=== PATIENT | male | born 1940 | race African-American/Black ===

== ENCOUNTER 2016-06-26 11:38 | Observation (INO) ==
[2016-06-26] MEDS ORDERED: NITROGLYCERIN 2% OINT 1 INCH/GM PACK TOP STA (12:12)
[2016-06-26] MEDS ORDERED: ALUM/MAG/SIMETH/LIDO VISC 1:1 30 ML BOTTLE PO STA (12:12)
[2016-06-26] MEDS ORDERED: NITROGLYCERIN SL 0.4 MG TABLET SL PRN ×3 (12:12→15:00)
[2016-06-26] MEDS ORDERED: ENOXAPARIN 100 MG/ML SYRINGE SUBCUT STA (12:12)
[2016-06-26] MEDS ORDERED: ASPIRIN 325 MG TABLET PO STA (12:12)
--- NOTE | 2016-06-26 12:15 | EKG Report ---
Stationary ECG Study 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
[2016-06-26] MEDS ORDERED: ALUM/MAG/SIMETH/LIDO VISC 1:1 30 ML BOTTLE PO ONE (12:22)
[2016-06-26] MEDS ORDERED: ASPIRIN 325 MG TABLET ONE (12:22)
[2016-06-26] MEDS ORDERED: NITROGLYCERIN 2% OINT 1 INCH/GM PACK TOP ONE (12:23)
[2016-06-26] MEDS ORDERED: ENOXAPARIN 40 MG/0.4 ML SYRINGE ONE (12:23)
[2016-06-26] MEDS ORDERED: ENOXAPARIN 100 MG/ML SYRINGE SUBCUT ONE (12:23)
--- NOTE | 2016-06-26 12:25 | Emergency Department Note ---
Elicia Rader Hilary, am scribing for, and in the presence of, Dami Herman MD 12: 19. Batsheva Rader James D, MD, personally performed the services described in this documentation, ascribed by Yoselin Rubi in my presence, and it is both accurate and complete [id number] . Arrival - Arrival Chief Complaint: Chest Pain Stated Complaint: chest pain ED Nursing Triage Note: Pt c/o chest pain with SOB since yesterday. Mode of Arrival: Ambulatory Limitations: No Limitations Source: Patient, RN Notes Reviewed Time Seen by Provider: 06/26/16 12:12 - History of Present Illness HPI Narrative: Pt is a 76 y/o black male presenting to the ED with c/o of dull chest pain and SOB. Pt confirms coughing, SOB, midsternal chest pain but denies diaphoresis, nausea or vomiting. He states that it feels like he has a "blockage" but doesn' t have a hard time swallowing or eating. Pt has a PMHx of HTN, DM, CHF and a stent but denies this feeling the same as before his stent was put in. No other complaints or problems stated. Onset (ago): day(s) Allergies/Adverse Reactions: Allergies Allergy/AdvReac Type Severity Reaction Status Date / Time No Known Allergies Allergy Verified 05/09/15 20:54 Home Medications: Home Medications Medication Instructions Recorded Confirmed Type Nitroglycerin Sl Tab [Nitrostat] 0.4 mg SL Q5M PRN #100 tablet 06/03/14 Rx Pantoprazole Tab [Protonix Tab] 40 mg PO DAILY #30 tablet 06/03/14 06/26/16 Rx [place]-3 Fatty Acids [Fish Oil] 1,000 mg PO BID 11/21/14 06/26/16 History Lisinopril [Lisinopril] 40 mg PO BID 12/02/14 06/26/16 History Cholecalciferol [Vitamin D3] 1,000 unit PO DAILY 03/20/16 06/26/16 History Diclofenac Sodium Tab [Voltaren] 75 mg PO BID 03/20/16 06/26/16 History Furosemide Tab [Lasix Tab] 80 mg PO BID 03/20/16 06/26/16 History Magnesium Oxide 420 mg PO BID 03/20/16 06/26/16 History Saxagliptin HCl [Onglyza] 5 mg PO DAILY 03/20/16 06/26/16 History Theophylline ER Tab 300 mg PO Q12H 03/20/16 06/26/16 History Albuterol Sulfate [Proair HFA] 2 puff INH Q6H PRN 06/26/16 06/26/16 History Atorvastatin Calcium 20 mg PO BEDTIME 06/26/16 06/26/16 History Carvedilol [Coreg] 25 mg PO BID 06/26/16 06/26/16 History Cyanocobalamin (Vitamin B-12) 1,000 mcg PO QAM 06/26/16 06/26/16 History [Vitamin B-12] Insulin NPH Hum/Reg Insulin Hm 40 unit SUBCUT QPM 06/26/16 06/26/16 History [NovoLIN 70/30] Insulin NPH Hum/Reg Insulin Hm 55 unit SUBCUT QAM 06/26/16 06/26/16 History [NovoLIN 70/30] Losartan Potassium 50 mg PO BID 06/26/16 06/26/16 History Multivitamin [Multivitamins] 1 each PO BEDTIME 06/26/16 06/26/16 History Nortriptyline HCl 10 mg PO BEDTIME 06/26/16 06/26/16 History amLODIPine [Norvasc] 5 mg PO DAILY 06/26/16 06/26/16 History cloNIDine TAB [Catapres Tab] 0.1 mg PO DAILY PRN 06/26/16 06/26/16 History Review of System - Review of System 12 point system: reviewed and no additional remarkable complaints except as stated - Review of System Constitutional: Absent: diaphoresis, fever Respiratory: Present: cough Cardiovascular: Present: chest pain Gastrointestinal: Absent: abdominal pain, nausea, vomiting Medical,Surgical,& Family Hx - Medical History Cardio: History of: CHF, CAD (3.0 x 12 mm Taxus Liberte drug-eluting stent to the proximal LAD on 11/04), Hypertension, [place], Valvular Heart Disease Neurology: History of: Peripheral Neuropathy Endocrine: History of: Diabetes Mellitus (IDDM), Diabetes Mellitus (NIDDM), Dyslipidemia Respiratory: History of: COPD Gastrointestinal: History of: GERD - Surgical History Cardiac Surgeries: Sugical HX of: Cardiac Catheterization (STENT X 1) Reproductive Surgeries: Surgical HX of;: Genitourinary Surgery (Penis Pump) - Family History Family History: Reports;: Family Diabetes (MOTHER), Family Heart Disease (MOTHER ), Family Hypertension (MOTHER), Family Stroke (MOTHER) Denies;: Family Cancer - Social History Smoking Status: Former smoker Exam Physical Examination: GENERAL: This is a well-nourished, well-developed black male in no apparent distress. VITAL SIGNS: Temperature: 97.8F Pulse: 82H Respiratory: 20 Blood Pressure: 146/76 O2SAT: 96 HEENT: Head is normocephalic and atraumatic. Pupils are equally round and reactive to light. Extraocular movement are intact. Oropharynx is benign with moist mucous membranes. NECK: Neck is soft and supple without tenderness. There are no masses. There is no lymphadenopathy. LUNGS: Lungs are clear to auscultation bilaterally. Chest rises symmetrically. There is no chest wall tenderness. CV: Heart is regular rate and rhythm without murmurs, rubs, or gallops. ABDOMEN:Abdomen is soft, non-tender to palpation. There are no abnormal masses palpated. There is no organomegaly. Bowel sounds are present and active. SKIN: Skin is warm and dry. No rash. EXTREMITIES: Patient has full range of motion without tenderness. There is 1-2+ pitting edema. NEUROLOGIC: Awake, alert, and oriented x4. Cranial nerves II through XII are grossly intact. There are no motorsensory deficits. PSYCHIATRIC: Normal affect. Normal mood. Vital Signs: Vital Signs Temperature 97.8 F 06/26/16 11:55 Pulse Rate 78 06/26/16 12:30 Respiratory Rate 18 06/26/16 12:30 Blood Pressure 118/64 06/26/16 12:30 O2 Sat by Pulse Oximetry 100 06/26/16 12:30 Course - Reevaluation(s) Reevaluation #1: Patient denies any chest pain at present. He states that he is pain-free. Time: 13:15 - Consultations Consultation #1: Discussed with Dr. Lizarraga. Patient will be admitted to his service. Initial orders written for him. He will assume patient's care upon arrival to the [facility]. Time: 13:15 Consultation #2: Discussed with Dr. Arce. He will see the patient in the emergency department. Consider left heart cath now. Time: 13:35 Results - Labs CBC & BMP: 06/26/16 12:17 06/26/16 12:17 Lab Results: I have reviewed the patients labs Labs: Laboratory Tests 06/26/16 12:17 WBC 9.6 RBC 4.27 Hgb 13.9 L Hct 42.9 Laboratory Tests 06/26/16 12:17 Troponin I 1.740 H Laboratory Tests 06/26/16 06/26/16 12:17 12:17 Sodium 142 Potassium 3.9 Chloride 107 Carbon Dioxide 30 Creatinine 1.40 H Glucose 115 H Calcium 8.4 L Troponin I 1.740 H Albumin 3.3 L Globulin 4.3 H Albumin/Globulin Ratio 0.7 L - EKG EKG results: interpreted by ERMD - Impressions EKG: Normal sinus rhythm with a rate 81, nonspecific intraventricular conduction delay. ST segment depression and T-wave inversion laterally and inferiorly - Diagnostic Findings Procedure: Chest x-ray: image reviewed by me, report reviewed by me (No acute cardiopulmonary process is identified) Disposition Clinical Impression: Chest pain, Coronary artery disease, Essential hypertension, Diabetes mellitus , Non-STEMI (non-ST elevated myocardial infarction) Case discussed with: patient Disposition: Still a Patient Condition: Stable Time of Disposition: 13:15
[2016-06-26 12:26] LABS: Basophils % 0.3 % (0.0-0.8); Eosinophils # 0.1 10*3/uL (0.0-0.87); Eosinophils % 1.5 % (0.00-10.9); Hematocrit 42.9 VOL% (42.0-52.0); Hemoglobin 13.9 GM/DL (14.0-18.0); Immature Granulocytes % 0.4 %; Immature Granulocytes Absolute 0.04 #; Lymphocytes # 3.1 10*3/uL (1.4-4.0); Lymphocytes % 31.9 % (21.2-54.2); Mean Corpuscular HGB Conc 32.4 GM/DL (32-36); Mean Corpuscular Hemoglobin 33 PG (27-34); Mean Corpuscular Volume 100.5 FL (87-102); Mean Platelet Volume 10.3 FL (9.6-12.0); Monocytes # 0.8 10*3/uL (0.11-0.8); Neutrophils # 5.5 10*3/uL (1.4-7.4); Neutrophils % 57.9 % (38.7-73.9); Platelet Count 187 T/CUMM (130-400); Red Blood Count 4.27 MC/CUMM (3.8-5.5); Red Cell Distribution Width 12.6 % (9.3-17.3); White Blood Count 9.6 T/CUMM (4-12)
--- NOTE | 2016-06-26 12:43 | XRay Report ---
Exam: Chest 2 views Date: June 26, 2016 at 12:27 PM Comparison: Chest one view portable December 02, 2014 Reason: Chest pain Findings: The cardiac silhouette is normal in size. No focal consolidation, pneumothorax or pleural effusion is identified. No acute osseous process is seen. Impression: No acute cardiopulmonary process is identified. PROCEDURE INTERPRETED AT [facility] DEPARTMENT OF RADIOLOGY Final Report Signed by: Dr. Robina Chandra
[2016-06-26 12:56] LABS: Albumin 3.3 G/DL (3.4-5.0); Bilirubin,Total 0.8 MG/DL (0.2-1.0); Calcium 8.4 MG/DL (8.5-10.1); Magnesium 2.2 MG/DL (1.8-2.4); Osmolality,Calculated 284.1 MOS/KG (273-304); Potassium 3.9 MMOL/L (3.5-5.1); Total Protein 7.6 G/DL (6.4-8.3)
[2016-06-26] MEDS ORDERED: HEPARIN/NACL 0.9% 2 UNITS/ML 1,000 ML IV ONE (13:56)
--- NOTE | 2016-06-26 13:57 | Cardiology History & Physical ---
Assessment and Plan - Time spent with patient Time spent with patient: Greater than 30 minutes (1) Coronary artery disease Status: Chronic Current Visit: Yes Qualifiers: Coronary Disease-Associated Artery/Lesion type: [place] artery [place] vs. transplanted heart: [place] heart Associated angina: with unstable angina Qualified Code(s): I25.110 - Atherosclerotic heart disease of [place] coronary artery with unstable angina pectoris (2) Diabetes mellitus Status: Chronic Current Visit: Yes Qualifiers: Diabetes mellitus type: type 2 (3) Essential hypertension Status: Chronic Current Visit: Yes (4) Dyslipidemia Status: Chronic Current Visit: No (5) Hypertension Status: Chronic Current Visit: No Qualifiers: Hypertension type: essential hypertension Qualified Code(s): I10 - Essential (primary) hypertension (6) Obesity Status: Chronic Current Visit: No (7) Sleep apnea Status: Chronic Current Visit: No (8) ACS (acute coronary syndrome) Status: Acute Current Visit: No History of Present Illness Chief complaint: Feels like a blockage in here (points to epigastric area) History of present illness: Mr. Lau is a 76 year old male with history of percutaneous coronary intervention in 2008 and repeat heart cath by Dr. Israel 2012 showed no evidence of significant high-grade epicardial stenosis who presents with discomfort in the epigastrium area that started yesterday. He came for further evaluation he has a nondiagnostic EKG but has elevated troponin. I was asked to see. He is currently pain-free. He has dyspnea on exertion but is very sedentary states he can only walk really from the street to the house is about as far as he ever needs to walk. He has a personal history of coronary artery disease and every identifiable risk factor. Has mild renal insufficiency that is chronic. Home Medications Medication Instructions Recorded Confirmed Type Nitroglycerin Sl Tab [Nitrostat] 0.4 mg SL Q5M PRN #100 tablet 06/03/14 Rx Pantoprazole Tab [Protonix Tab] 40 mg PO DAILY #30 tablet 06/03/14 06/26/16 Rx [place]-3 Fatty Acids [Fish Oil] 1,000 mg PO BID 11/21/14 06/26/16 History Lisinopril [Lisinopril] 40 mg PO BID 12/02/14 06/26/16 History Cholecalciferol [Vitamin D3] 1,000 unit PO DAILY 03/20/16 06/26/16 History Diclofenac Sodium Tab [Voltaren] 75 mg PO BID 03/20/16 06/26/16 History Furosemide Tab [Lasix Tab] 80 mg PO BID 03/20/16 06/26/16 History Magnesium Oxide 420 mg PO BID 03/20/16 06/26/16 History Saxagliptin HCl [Onglyza] 5 mg PO DAILY 03/20/16 06/26/16 History Theophylline ER Tab 300 mg PO Q12H 03/20/16 06/26/16 History Albuterol Sulfate [Proair HFA] 2 puff INH Q6H PRN 06/26/16 06/26/16 History Atorvastatin Calcium 20 mg PO BEDTIME 06/26/16 06/26/16 History Carvedilol [Coreg] 25 mg PO BID 06/26/16 06/26/16 History Cyanocobalamin (Vitamin B-12) 1,000 mcg PO QAM 06/26/16 06/26/16 History [Vitamin B-12] Insulin NPH Hum/Reg Insulin Hm 40 unit SUBCUT QPM 06/26/16 06/26/16 History [NovoLIN 70/30] Insulin NPH Hum/Reg Insulin Hm 55 unit SUBCUT QAM 06/26/16 06/26/16 History [NovoLIN 70/30] Losartan Potassium 50 mg PO BID 06/26/16 06/26/16 History Multivitamin [Multivitamins] 1 each PO BEDTIME 06/26/16 06/26/16 History Nortriptyline HCl 10 mg PO BEDTIME 06/26/16 06/26/16 History amLODIPine [Norvasc] 5 mg PO DAILY 06/26/16 06/26/16 History cloNIDine TAB [Catapres Tab] 0.1 mg PO DAILY PRN 06/26/16 06/26/16 History Allergies Allergy/AdvReac Type Severity Reaction Status Date / Time No Known Allergies Allergy Verified 05/09/15 20:54 - Constitutional Constitutional: Present: weakness, weight loss. Absent: anorexia, chills, frequent falls, headache(s), lethargy - EENT Eyes: Absent: blurry vision, diplopia Ears: Present: decreased hearing. Absent: ear discharge Nose, mouth and throat: Absent: dysphagia, lip swelling - Cardiovascular Cardiovascular: Present: chest pain at rest, dyspnea, dyspnea on exertion, edema. Absent: lightheadedness, orthopnea, palpitations - Respiratory Respiratory: Present: dyspnea, dyspnea on exertion - Gastrointestinal Gastrointestinal: Present: abdominal pain. Absent: constipation - Genitourinary Genitourinary: Present: difficulty urinating. Absent: hematuria - Musculoskeletal Musculoskeletal: Present: arthralgias. Absent: joint swelling - Neurological Neurological: Absent: abnormal speech, behavioral changes, confusion, convulsions, disequilibrium, dizziness - Psychiatric Psychiatric: Absent: anxiety, depression - Endocrine Endocrine: Absent: cold intolerance, heat intolerance - Hematologic/Lymphatic Hematologic/Lymphatic: Absent: easy bleeding, easy bruising Medical,Surgical,& Family Hx - Medical History Cardio: History of: CHF, CAD (3.0 x 12 mm Taxus Liberte drug-eluting stent to the proximal LAD on 11/04), Hypertension, [place], Valvular Heart Disease Neurology: History of: Peripheral Neuropathy Endocrine: History of: Diabetes Mellitus (NIDDM), Dyslipidemia Respiratory: History of: COPD Gastrointestinal: History of: GERD - Surgical History Cardiac Surgeries: Sugical HX of: Cardiac Catheterization (STENT X 1 2008 and repeat LHC 2012 with no PCI) Reproductive Surgeries: Surgical HX of;: Genitourinary Surgery (Penis Pump) - Family History Family History: Reports;: Family Diabetes (MOTHER), Family Heart Disease (MOTHER ), Family Hypertension (MOTHER), Family Stroke (MOTHER) Denies;: Family Cancer - Social History Smoking Status: Former smoker Frequency of Alcohol Use: None Type of Drug Use: None Marital Status: Lives With:: Spouse Functional capacity: independent ambulation Cardiology Physical Exam - Constitutional Vitals: Vital Signs Temp Pulse Resp BP Pulse Ox 97.8 F 76 19 123/75 99 06/26/16 11:55 06/26/16 13:30 06/26/16 13:30 06/26/16 13:30 06/26/16 13:30 General appearance: morbidly obese - Head Head exam: Present: other (ASA 4 airway) - Eye Eye exam: Present: EOMI Pupils: Present: REBECA, normal accommodation - ENT ENT exam: Present: normal exam - Neck Neck exam: Present: normal inspection - Respiratory Respiratory exam: Present: clear to auscultation bilaterally - Cardiovascular Cardiovascular exam: Present: regular rate and rhythm (tones obscured in the ambient noise of the ED) - GI/Abdominal GI/Abdominal exam: Present: normal bowel sounds, soft. Absent: mass - Extremities Exam Extremities exam: Present: normal inspection - Back Exam Back exam: Present: normal inspection - Neurological Exam Neurological exam: Present: alert, oriented X3 - Psychiatric Psychiatric exam: Present: normal affect - Skin Skin exam: Present: normal color Result/EKG - Labs CBC & BMP: 06/26/16 12:17 06/26/16 12:17 - EKG EKG results: interpreted by me (NSR with old anteroseptal PA and lateral TWI)
[2016-06-26 14:03] LABS: Apearance,Urine CLEAR (Clear); Bacteria,Urine Occasional /HPF (Few); Bilirubin,Urine Negative (Negative); Blood, Urine Negative (Negative); Glucose,Urine (UA) Negative (Negative); Hyaline Casts,Urine 1 /LPF (0-3); Ketones,Urine Negative (Negative); Mucus,Urine Occasional /LPF (Occasional); Nitrite,Urine Negative (Negative); Protein,Urine Negative; Squamous Epithelial Cell,Urine Occasional /HPF (0-10); Urine Color Yellow (Yellow); Urine Specific Gravity 1.013 (1.001-1.035); Urine Urobilinogen < 2.0 EU/DL (0.2-1.0); WBC,Urine 2 /HPF (0-6)
[2016-06-26] MEDS ORDERED: MIDAZOLAM 2 MG/2 ML VIAL ONE (14:03)
[2016-06-26] MEDS ORDERED: fentaNYL 100 MCG/2 ML VIAL ONE (14:03)
--- NOTE | 2016-06-26 14:05 | History and Physical Update ---
Sedation H&P Update - History and Physical H&P was reviewed, the patient examined and there: are no changes in the patients condition since last H&P was completed. - Dictation Physical: refer to H&P completed by admitting physician - Physical Exam Mental Status: alert and oriented Heart: regular rate and rhythm Lung: clear to auscultation Abdomen: within normal limits Vitals: within normal limits - Sedation Plan for Sedation: moderate Patient Consent: Procedure disscussed with patient and patinet has consented., Risks and benefits were discussed with patient,including infection,, bleeding, injury to surrounding structures, seizure, temporary nerve, Patient understands and accepts potential risks/benefits and agrees to, proceed. ASA Class: III Airway Assessment: Class IV: Only hard palate visible
[2016-06-26 14:07] LABS: Partial Thromboplastin Time 36.2 SECS (0-40)
[2016-06-26 14:13] LABS: Barbiturates Screen,Urine Negative (Negative); Benzodiazepines Screen,Urine Negative (Negative); Cannabinoid Screen,Urine Negative (Negative); Opiate Screen,Urine Negative (Negative); Phencyclidine Screen,Urine Negative (Negative)
[2016-06-26] MEDS ORDERED: VERAPAMIL 5 MG/2 ML VIAL ONE (14:19)
[2016-06-26] MEDS ORDERED: NITROGLYCERIN DRIP 50 MG/250 ML BOTTLE IV ONE (14:19)
[2016-06-26] MEDS ORDERED: CLOPIDOGREL 300 MG TABLET PO ONE (14:45)
[2016-06-26] MEDS ORDERED: ACETAMINOPHEN 325 MG TABLET PO PRN ×2 (14:45→15:00)
[2016-06-26] MEDS ORDERED: hydrALAZINE 20 MG/1 ML VIAL IV PRN (14:49)
--- NOTE | 2016-06-26 14:56 | Cardiac Catheterization ---
Date of Procedure:: 06/26/16 Pre-op Diagnosis: Acute coronary syndrome, troponin positive Post-op diagnosis: other (High-grade mid nondominant very small RCA (supplies only RV branch)) Procedure: Procedures: 1. Selective left coronary angiography After signed an informed consent was obtained, the patient was prepped and draped in standard fashion for right radial access. Time out was recorded. 0.5 mL of 1% lidocaine were infiltrated in the skin and subcutaneous tissue overlying the right radial artery and Seldinger technique was utilized with a Angiocath to obtain access to the right radial artery. A CinnamonumCortera glide wire was then advanced into the midforearm under fluoroscopic guidance. The Angiocath was removed and a 6 [place] Terumo glide sheath was placed over the Glidewire. The sheath was aspirated and flushed and then 5 mg of verapamil and 200 g of nitroglycerin were given through the sheath. At this time an 035 J-wire was used to guide a [place] 6 [place] catheter was then used to engage the left main coronary artery and multiple orthogonal views of the left system were obtained. The catheter then was torqued into the right coronary artery and orthogonal views of the right system were obtained. The catheter was then exchanged over the wire. The sheath was aspirated and flushed. The slitter cut off operator reviewed the films. And a TR band was placed over the glide sheath and used for hemostasis. Total contrast exposure 140 cc of omnipaque Total x-ray exposure: 4.4 min fluoroscopy time and 690 mGy air Kerma Due to the patient's body habitus and suboptimal access from the radial artery position there before or suboptimal imaging. Patient's BMI is only 40 however it is significantly amount of fat and tissue around the thorax. Findings: 1. Hemodynamics Ao:125/61 2. Left main: This vessel is angiographically normal 3: Left anterior descending artery: Left anterior descending arteries has mild plaque throughout his very tortuous vessel. 4: Left circumflex artery: Left circumflex artery is a dominant vessel and has mild luminal irregularities. There is no high-grade epicardial stenosis. There is diffuse small vessel disease in the secondary and tertiary level vessels 5: Right coronary artery: Right coronary artery is approximately 2.5 mm vessel it is nondominant supplies only segments of the right ventricle. There is approximately 80% hazy stenosis in the mid segment of this vessel there is NIGEL II flow to the branches of the right ventricle. The previously deployed stent is widely patent and overall the vessels superior not significantly different in the epicardial standpoint and his last heart cath in 2012. There is diffuse small vessel disease Assessment: 1. Troponin positive acute coronary syndrome secondary to high-grade mid nondominant RCA coronary artery (no identifiable supply to the left ventricle) Plan: 1. Therapeutic lifestyle changes. 2. Medical management cardiac rehab Implants: None Anesthesia: minimal conscious sedation Surgeon / Physician: Nidhi Arce Jewelry Jobber: none Estimated blood loss: none Specimens: none sent Condition: stable Disposition: floor - Medications / Follow-up
[2016-06-26] MEDS ORDERED: PANTOPRAZOLE 40 MG TABLET PO SCH (15:00)
[2016-06-26] MEDS ORDERED: ZALEPLON 5 MG CAPSULE PO PRN (15:00)
[2016-06-26] MEDS ORDERED: GLUCAGON 1 MG VIAL IM PRN (15:00)
[2016-06-26] MEDS ORDERED: SODIUM CHLORIDE 0.45% 1,000 ML IV SCH (15:00)
[2016-06-26] MEDS ORDERED: DEXTROSE 50% 25 GM/50 ML VIAL IV PRN (15:00)
[2016-06-26] MEDS ORDERED: SODIUM CHLORIDE 0.9% 1,000 ML IV SCH (15:00)
[2016-06-26] MEDS ORDERED: cloNIDine 0.1 MG TABLET PO PRN (15:00)
[2016-06-26] MEDS ORDERED: ONDANSETRON 4 MG/2 ML VIAL IV PRN (15:00)
[2016-06-26] MEDS ORDERED: MAGNESIUM SULF RIDER 2 GM in PREMIX 1 EACH IV PRN (15:00)
[2016-06-26] MEDS ORDERED: MAGNESIUM SULF RIDER 4 GM in PREMIX 1 EACH IV PRN (15:00)
[2016-06-26] MEDS ORDERED: MORPHINE 2 MG/1 ML SYRINGE IV PRN (15:00)
[2016-06-26] MEDS: CYANOCOBALAMIN 500 MCG TABLET PO SCH (16:12)
[2016-06-26] MEDS: sitaGLIPtin 100 MG TABLET PO SCH (16:12)
[2016-06-26] MEDS: INSULIN REGULAR 100 UNIT/ML SUBCUT SCH ×2 (16:53→22:04)
[2016-06-26] MEDS: THEOPHYLLINE ER 300 MG TABLET PO SCH (16:53)
[2016-06-26] MEDS: ALBUTEROL 2.5 MG/3 ML NEB RESP TX SCH ×2 (17:56→19:32)
[2016-06-26] MEDS: INSULIN NPH/REGULAR 70/30 100 UNIT/ML SUBCUT SCH (18:39)
[2016-06-26] MEDS ORDERED: ATORVASTATIN 20 MG TABLET PO SCH (21:00)
[2016-06-26] MEDS: OMEGA 3 ACID ETHYL ESTERS 1 GM CAPSULE PO SCH (22:02)
[2016-06-26] MEDS: NORTRIPTYLINE 10 MG CAPSULE PO SCH (22:03)
[2016-06-26] MEDS: CARVEDILOL 25 MG TABLET PO SCH (22:03)
[2016-06-26] MEDS: MAGNESIUM OXIDE 400 MG TABLET PO SCH (22:03)
[2016-06-26] MEDS: LOSARTAN 50 MG TABLET PO SCH (22:04)
[2016-06-26] MEDS: FUROSEMIDE 80 MG TABLET PO SCH (22:04)
[2016-06-26] MEDS: MULTIVITAMIN (CENTRUM) TABLET PO SCH (22:05)
[2016-06-27] MEDS: ALBUTEROL 2.5 MG/3 ML NEB RESP TX SCH ×4 (02:38→21:32)
[2016-06-27] MEDS: THEOPHYLLINE ER 300 MG TABLET PO SCH ×2 (05:49→14:41)
[2016-06-27 06:24] LABS: Basophils % 0.3 % (0.0-0.8); Eosinophils # 0.2 10*3/uL (0.0-0.87); Eosinophils % 1.6 % (0.00-10.9); Hematocrit 39.2 VOL% (42.0-52.0); Hemoglobin 12.9 GM/DL (14.0-18.0); Immature Granulocytes % 0.4 %; Immature Granulocytes Absolute 0.04 #; Lymphocytes # 3.2 10*3/uL (1.4-4.0); Lymphocytes % 34.3 % (21.2-54.2); Mean Corpuscular HGB Conc 32.9 GM/DL (32-36); Mean Corpuscular Hemoglobin 33 PG (27-34); Monocytes # 0.7 10*3/uL (0.11-0.8); Monocytes % 7.9 % (1.7-12.7); Neutrophils # 5.1 10*3/uL (1.4-7.4); Neutrophils % 55.5 % (38.7-73.9); Platelet Count 167 T/CUMM (130-400); Red Blood Count 3.96 MC/CUMM (3.8-5.5); Red Cell Distribution Width 12.7 % (9.3-17.3); White Blood Count 9.2 T/CUMM (4-12)
[2016-06-27 06:54] LABS: Calcium 7.9 MG/DL (8.5-10.1); Osmolality,Calculated 283.1 MOS/KG (273-304); Potassium 3.7 MMOL/L (3.5-5.1)
[2016-06-27] MEDS: INSULIN REGULAR 100 UNIT/ML SUBCUT SCH ×4 (08:41→21:50)
[2016-06-27] MEDS: CYANOCOBALAMIN 500 MCG TABLET PO SCH (09:14)
[2016-06-27] MEDS: amLODIPine 5 MG TABLET PO SCH (09:14)
[2016-06-27] MEDS: CLOPIDOGREL 75 MG TABLET PO SCH (09:14)
[2016-06-27] MEDS: LOSARTAN 50 MG TABLET PO SCH ×2 (09:14→21:48)
[2016-06-27] MEDS: CHOLECALCIFEROL 1,000 UNIT TABLET PO SCH (09:14)
[2016-06-27] MEDS: sitaGLIPtin 100 MG TABLET PO SCH (09:14)
[2016-06-27] MEDS: FUROSEMIDE 80 MG TABLET PO SCH ×2 (09:14→21:49)
[2016-06-27] MEDS: OMEGA 3 ACID ETHYL ESTERS 1 GM CAPSULE PO SCH ×2 (09:14→21:49)
[2016-06-27] MEDS: PANTOPRAZOLE 40 MG TABLET PO SCH (09:14)
[2016-06-27] MEDS: CARVEDILOL 25 MG TABLET PO SCH ×2 (09:15→21:50)
[2016-06-27] MEDS: MAGNESIUM OXIDE 400 MG TABLET PO SCH ×2 (09:15→21:49)
[2016-06-27] MEDS: ISOSORBIDE MONONITRATE 30 MG TABLET PO SCH (09:15)
--- NOTE | 2016-06-27 10:55 | Cardiology Progress Note ---
Assessment and Plan (1) Coronary artery disease Status: Chronic Current Visit: Yes Qualifiers: Coronary Disease-Associated Artery/Lesion type: [place] artery [place] vs. transplanted heart: [place] heart Associated angina: with unstable angina Qualified Code(s): I25.110 - Atherosclerotic heart disease of [place] coronary artery with unstable angina pectoris (2) Diabetes mellitus Status: Chronic Current Visit: Yes Qualifiers: Diabetes mellitus type: type 2 (3) Essential hypertension Status: Chronic Current Visit: Yes (4) Dyslipidemia Status: Chronic Current Visit: No (5) Hypertension Status: Chronic Current Visit: No Qualifiers: Hypertension type: essential hypertension Qualified Code(s): I10 - Essential (primary) hypertension (6) Obesity Status: Chronic Current Visit: No (7) Sleep apnea Status: Chronic Current Visit: No (8) ACS (acute coronary syndrome) Status: Acute Assessment and plan: As above in the HPI. This is troponin positive Current Visit: No Cardiology - PN: Subj Interval history: Mr. Lau states that he has a dull ache in his chest that has without much change. He does not notice that it is worse when he up and walks. He states he actually notices it more when he is lying back. He got up only to go to the restroom. I talked to him about his anatomy in this nondominant RCA that has a high-grade stenosis and I elected not to perform PCI yesterday because the nondominant status and I felt that it had little contribution his overall morbidity and mortality. If he continues to have discomfort we will consider PCI. I am reluctant to do this and do not know therapy much benefit. He also has diffuse small vessel disease. All of which could be contributing. His troponin peaked at 2.6 and is trending back down. I suppose if he continues to have discomfort in his chest I will proceed with PCI of the nondominant RCA. Exam (Progress Note) - Constitutional Vitals: Period Temp Pulse Resp BP Sys/Fair Pulse Ox Last 24 Hr 96.4 F-99 F 72-104 14-20 118-185/52-90 91-100 General appearance: morbidly obese - Head Head exam: Present: normal inspection - Eye Eye exam: Present: EOMI - Respiratory Respiratory exam: Present: clear to auscultation bilaterally - Cardiovascular Cardiovascular exam: Present: regular rate and rhythm - GI/Abdominal GI/Abdominal exam: Present: normal bowel sounds - Extremities Exam Extremities exam: Present: normal inspection - Neurological Exam Neurological exam: Present: alert, oriented X3 - Psychiatric Psychiatric exam: Present: normal affect, normal mood - Skin Skin exam: Present: normal color, warm, dry Result/EKG - Labs CBC & BMP: 06/27/16 05:03 06/27/16 05:03 Labs: Laboratory Results - last 24 hr 06/26/16 06/26/16 06/26/16 13:46 13:51 13:51 WBC RBC Hgb Hct MCV MCH MCHC RDW Plt Count MPV Neut % (Auto) Lymph % (Auto) [place] % (Auto) Eos % (Auto) Baso % (Auto) Neut # (Auto) Lymph # (Auto) [place] # (Auto) Eos # (Auto) Baso # (Auto) Immature Gran % Nucleated RBC % Immature Gran # Nucleated RBCs # INR 1.0 PT Patient/Control Mix 11.0 Circ Anticoag PTT 36.2 D Sodium Potassium Chloride Carbon Dioxide Anion Gap BUN Creatinine GFR Calculation BUN/Creatinine Ratio Glucose POC Glucose Calculated Osmolality Calcium Troponin I Urine Color Yellow Urine Appearance Clear Urine pH 6.0 Ur Specific [place] 1.013 Urine Protein Negative Urine Glucose (UA) Negative Urine Ketones Negative Urine Blood Negative Urine Nitrate Negative Urine Bilirubin Negative Urine Urobilinogen < 2.0 H Urine Leukocytes Negative Urine WBC 2 Ur Squamous Epith Cells Occasional Urine Bacteria Occasional Hyaline Casts 1 Urine Mucus Occasional Ur Culture Indicated? Not indicated Urine Opiates Screen Negative Ur Barbiturates Screen Negative Ur Phencyclidine Scrn Negative U Amphetamine/Methamph Negative U Benzodiazepines Scrn Negative U Cocaine Metab Screen Negative U Cannabinoids Screen Negative 06/26/16 06/26/16 06/26/16 15:17 16:36 17:58 WBC RBC Hgb Hct MCV MCH MCHC RDW Plt Count MPV Neut % (Auto) Lymph % (Auto) [place] % (Auto) Eos % (Auto) Baso % (Auto) Neut # (Auto) Lymph # (Auto) [place] # (Auto) Eos # (Auto) Baso # (Auto) Immature Gran % Nucleated RBC % Immature Gran # Nucleated RBCs # INR PT Patient/Control Mix Circ Anticoag PTT Sodium Potassium Chloride Carbon Dioxide Anion Gap BUN Creatinine GFR Calculation BUN/Creatinine Ratio Glucose POC Glucose 56 L Calculated Osmolality Calcium Troponin I 1.690 H 2.100 H D Urine Color Urine Appearance Urine pH Ur Specific [place] Urine Protein Urine Glucose (UA) Urine Ketones Urine Blood Urine Nitrate Urine Bilirubin Urine Urobilinogen Urine Leukocytes Urine WBC Ur Squamous Epith Cells Urine Bacteria Hyaline Casts Urine Mucus Ur Culture Indicated? Urine Opiates Screen Ur Barbiturates Screen Ur Phencyclidine Scrn U Amphetamine/Methamph U Benzodiazepines Scrn U Cocaine Metab Screen U Cannabinoids Screen 06/26/16 06/26/16 06/27/16 20:46 21:42 05:03 WBC 9.2 RBC 3.96 Hgb 12.9 L Hct 39.2 L MCV 99.0 MCH 33 MCHC 32.9 RDW 12.7 Plt Count 167 MPV 11.0 Neut % (Auto) 55.5 Lymph % (Auto) 34.3 [place] % (Auto) 7.9 Eos % (Auto) 1.6 Baso % (Auto) 0.3 Neut # (Auto) 5.1 Lymph # (Auto) 3.2 [place] # (Auto) 0.7 Eos # (Auto) 0.2 Baso # (Auto) 0.0 Immature Gran % 0.4 Nucleated RBC % 0.0 Immature Gran # 0.04 Nucleated RBCs # 0.00 INR PT Patient/Control Mix Circ Anticoag PTT Sodium Potassium Chloride Carbon Dioxide Anion Gap BUN Creatinine GFR Calculation BUN/Creatinine Ratio Glucose POC Glucose 128 H Calculated Osmolality Calcium Troponin I 1.870 H Urine Color Urine Appearance Urine pH Ur Specific [place] Urine Protein Urine Glucose (UA) Urine Ketones Urine Blood Urine Nitrate Urine Bilirubin Urine Urobilinogen Urine Leukocytes Urine WBC Ur Squamous Epith Cells Urine Bacteria Hyaline Casts Urine Mucus Ur Culture Indicated? Urine Opiates Screen Ur Barbiturates Screen Ur Phencyclidine Scrn U Amphetamine/Methamph U Benzodiazepines Scrn U Cocaine Metab Screen U Cannabinoids Screen 06/27/16 06/27/16 05:03 07:14 WBC RBC Hgb Hct MCV MCH MCHC RDW Plt Count MPV Neut % (Auto) Lymph % (Auto) [place] % (Auto) Eos % (Auto) Baso % (Auto) Neut # (Auto) Lymph # (Auto) [place] # (Auto) Eos # (Auto) Baso # (Auto) Immature Gran % Nucleated RBC % Immature Gran # Nucleated RBCs # INR PT Patient/Control Mix Circ Anticoag PTT Sodium 142 Potassium 3.7 Chloride 106 Carbon Dioxide 28 Anion Gap 11.7 BUN 13 Creatinine 1.30 GFR Calculation 90 BUN/Creatinine Ratio 10.00 Glucose 114 H POC Glucose 132 H Calculated Osmolality 283.1 Calcium 7.9 L Troponin I Urine Color Urine Appearance Urine pH Ur Specific [place] Urine Protein Urine Glucose (UA) Urine Ketones Urine Blood Urine Nitrate Urine Bilirubin Urine Urobilinogen Urine Leukocytes Urine WBC Ur Squamous Epith Cells Urine Bacteria Hyaline Casts Urine Mucus Ur Culture Indicated? Urine Opiates Screen Ur Barbiturates Screen Ur Phencyclidine Scrn U Amphetamine/Methamph U Benzodiazepines Scrn U Cocaine Metab Screen U Cannabinoids Screen Quality Measures - VTE Contraindication to Pharmacological VTE Prophylaxis: Already on Theraputic Agent , No Prophylaxis Needed Specialty Discharge - Follow Up or Referrals
[2016-06-27] MEDS: ASPIRIN EC 81 MG TABLET PO SCH (12:46)
[2016-06-27] MEDS: traMADol 50 MG TABLET PO SCH ×2 (14:42→21:48)
[2016-06-27] MEDS: GABAPENTIN 100 MG CAPSULE PO SCH ×3 (14:42→21:48)
[2016-06-27] MEDS ORDERED: ATORVASTATIN 80 MG TABLET PO SCH (21:00)
[2016-06-27] MEDS: MULTIVITAMIN (CENTRUM) TABLET PO SCH (21:48)
[2016-06-27] MEDS: NORTRIPTYLINE 10 MG CAPSULE PO SCH (21:49)
[2016-06-27] MEDS: ACETAMINOPHEN 325 MG TABLET PO SCH (21:49)
[2016-06-27] MEDS: INSULIN NPH/REGULAR 70/30 100 UNIT/ML SUBCUT SCH (21:57)
[2016-06-28] MEDS: ALBUTEROL 2.5 MG/3 ML NEB RESP TX SCH ×2 (02:29→06:59)
[2016-06-28] MEDS: THEOPHYLLINE ER 300 MG TABLET PO SCH (03:33)
--- NOTE | 2016-06-28 08:04 | Discharge Summary ---
Rashard Rader April RN, am scribing for, and in the presence of, Nidhi Arce DO 07 :49. Hospital Course - Hospital Course Hospital Course: Mr. Lau presented to the emergency department on June 26 with discomfort in the epigastrium area that started the day before. He had a nondiagnostic EKG, but elevated troponin. He has a history of CAD with percutaneous coronary intervention in 2008 and repeat heart cath Dr. Israel in 2012 that showed no evidence of evidence of high-grade epicardial stenosis. He was taken to the [facility] with the following findings: 1. Hemodynamics Ao:125/61 2. Left main: This vessel is angiographically normal 3: Left anterior descending artery: Left anterior descending arteries has mild plaque throughout his very tortuous vessel. 4: Left circumflex artery: Left circumflex artery is a dominant vessel and has mild luminal irregularities. There is no high-grade epicardial stenosis. There is diffuse small vessel disease in the secondary and tertiary level vessels 5: Right coronary artery: Right coronary artery is approximately 2.5 mm vessel it is nondominant supplies only segments of the right ventricle. There is approximately 80% hazy stenosis in the mid segment of this vessel there is NIGEL II flow to the branches of the right ventricle. The previously deployed stent is widely patent and overall the vessels superior not significantly different in the epicardial standpoint and his last heart cath in 2012. There is diffuse small vessel disease Assessment: 1. Troponin positive acute coronary syndrome secondary to high-grade mid nondominant RCA coronary artery (no identifiable supply to the left ventricle) Yesterday he continued to have a dull ache in his chest. We discussed considering PCI to the nondominant RCA with the chest pain continued. Today he is pain-free and wishes to go home. His right wrist is without evidence of bleeding or hematoma and has a good pulse. Currently he is in sinus rhythm with heart rates in the 80s. Vital signs been stable with blood pressure 126/ 67 this morning. At this time, he appears to have reached maximum hospital benefit, and from a cardiac standpoint he is stable to be discharged home. He will follow-up with Dr. Israel in the office in 2 weeks. The lesion in the small nondominant right coronary artery was high-grade but supplies only the right ventricle. There appears to be no contribution the left ventricle it was my decision to treat this medically. The patient had some vague chest discomfort the day of the heart cath but was up and walking the day of discharge without any chest discomfort. He is aware that he has this lesion and we will proceed with PCI if medical therapy does not keep him asymptomatic. I do think the vessel is amenable to PCI if needed. - Time spent with patient Time with patient DS: Greater than 30 minutes Diagnosis - Discharge Diagnosis (1) Coronary artery disease Status: Chronic (2) Essential hypertension Status: Chronic (3) Diabetes mellitus Status: Chronic (4) Non-STEMI (non-ST elevated myocardial infarction) Status: Acute Specialty Discharge - Follow Up or Referrals Follow up with: Jorge Israel MD [Physician] - 2 Weeks (with ekg) Discharge Plan - Discharge Data Disposition: Disch To Home/Self Care Condition at Discharge: Stable Discharge Diet: heart healthy Activity: other (Post cath expectations) Hygiene: other (Post cath expectations) Weight Bearing at Discharge: other (Post cath expectations) Driving: other (Post cath expectations) Contact your physician if you experience:: fever over 101, Difficulty voiding, Redness or swelling, Nausea/Vomiting, Shortness of breath, Bleeding, pain uncontrolled by pain medications - Discharge Medications New Atorvastatin [Lipitor] 80 mg PO BEDTIME #30 tablet Clopidogrel [Plavix] 75 mg PO DAILY #30 tablet Gabapentin Cap/Tab [Neurontin Cap/Tab] 100 mg PO TID capsule Aspirin EC Tab 81 mg PO DAILY tablet Isosorbide Mononitrate [Imdur] 30 mg PO DAILY #30 tablet Continue Nitroglycerin Sl Tab [Nitrostat] 0.4 mg SL Q5M PRN #100 tablet PRN Reason: Chest Pain Pantoprazole Tab [Protonix Tab] 40 mg PO DAILY #30 tablet [place]-3 Fatty Acids [Fish Oil] 1,000 mg PO BID Diclofenac Sodium Tab [Voltaren] 75 mg PO BID Furosemide Tab [Lasix Tab] 80 mg PO BID Saxagliptin HCl [Onglyza] 5 mg PO DAILY Magnesium Oxide 420 mg PO BID amLODIPine [Norvasc] 5 mg PO DAILY Nortriptyline HCl 10 mg PO BEDTIME cloNIDine TAB [Catapres Tab] 0.1 mg PO DAILY PRN PRN Reason: Hypertension Carvedilol [Coreg] 25 mg PO BID Insulin NPH Hum/Reg Insulin Hm [NovoLIN 70/30] 55 unit SUBCUT QAM Insulin NPH Hum/Reg Insulin Hm [NovoLIN 70/30] 40 unit SUBCUT QPM Ketoconazole [Ketoconazole 2% Cream] 1 applic TOP BID PRN PRN Reason: Dry Skin Ketoconazole [Ketoconazole 2% Shampoo] 1 applic .ROUTE DIRECTED Theophylline ER Tab 300 mg PO Q12H Cholecalciferol [Vitamin D3] 1,000 unit PO DAILY Losartan Potassium 50 mg PO BID Cyanocobalamin (Vitamin B-12) [Vitamin B-12] 1,000 mcg PO QAM Multivitamin [Multivitamins] 1 each PO BEDTIME Albuterol Sulfate [Proair HFA] 2 puff INH Q6H PRN PRN Reason: Shortness Of Breath/Wheezing Discontinued Lisinopril [Lisinopril] 40 mg PO BID Atorvastatin Calcium 20 mg PO BEDTIME - Follow Up or Referral Follow Up: Jorge Israel MD [Physician] - 2 Weeks (with ekg) - Forms/Instructions Instructions: Coronary Artery Disease (GEN), Left Heart Catheterization (DC), Heart Healthy Diet (GEN) Exam - Constitutional Vitals: Period Temp Pulse Resp BP Sys/Fair Pulse Ox Last 24 Hr 97.1 F-98.6 F 16-92 16-20 126-178/67-90 91-99 General appearance: no acute distress, morbidly obese - Head Head exam: Absent: abrasion, hematoma - Eye Eye exam: Absent: periorbital swelling, laceration to eyelids - Neck Neck exam: Absent: tenderness - Respiratory Respiratory exam: Present: clear to auscultation bilaterally. Absent: accessory muscle use, chest wall tenderness - Cardiovascular Cardiovascular exam: Present: regular rate and rhythm - GI/Abdominal GI/Abdominal exam: Present: normal bowel sounds, soft. Absent: distended, tenderness - Extremities Exam Extremities exam: Absent: edema - Neurological Exam Neurological exam: Present: alert, oriented X3 - Psychiatric Psychiatric exam: Present: normal affect, normal mood - Skin Skin exam: Present: warm, dry Discharge Results Labs on day of discharge: Labs from last 24 hours 06/27/16 06/27/16 06/27/16 20:16 16:21 11:58 POC Glucose 117 H 95 143 H 06/27/16 07:14 POC Glucose 132 H - Imaging and Cardiology Cardiology Procedure: report reviewed by Procedure: Chest x-ray: report reviewed by DS: Provider Consults: 06/26/16 14:45 Consult to Cardiac Rehabilitation [CONS] Routine Reason for Cardiac Rehabilitation: Risk Factor Modification Appt Out Pt Cardiac Rehab 06/26/16 15:43 Consult to Pharmacy [CONS] Routine Reason for Pharmacy Consult: Adjust Meds Renal Funct Expected date of discharge: 06/28/16 Yazmin Rader Shea, , personally performed the services described in this documentation, ascribed by Geovanna Wetzel RN in my presence, and it is both accurate and complete 804 .
[2016-06-28 08:11] VITALS: BP 148/85
[2016-06-28] MEDS: INSULIN REGULAR 100 UNIT/ML SUBCUT SCH ×2 (09:19→12:04)
[2016-06-28] MEDS: ASPIRIN EC 81 MG TABLET PO SCH (09:21)
[2016-06-28] MEDS: CLOPIDOGREL 75 MG TABLET PO SCH (09:28)
[2016-06-28] MEDS: MAGNESIUM OXIDE 400 MG TABLET PO SCH (09:28)
[2016-06-28] MEDS: traMADol 50 MG TABLET PO SCH (09:28)
[2016-06-28] MEDS: amLODIPine 5 MG TABLET PO SCH (09:28)
[2016-06-28] MEDS: OMEGA 3 ACID ETHYL ESTERS 1 GM CAPSULE PO SCH (09:28)
[2016-06-28] MEDS: CARVEDILOL 25 MG TABLET PO SCH (09:29)
[2016-06-28] MEDS: LOSARTAN 50 MG TABLET PO SCH (09:29)
[2016-06-28] MEDS: CYANOCOBALAMIN 500 MCG TABLET PO SCH (09:29)
[2016-06-28] MEDS: CHOLECALCIFEROL 1,000 UNIT TABLET PO SCH (09:29)
[2016-06-28] MEDS: ACETAMINOPHEN 325 MG TABLET PO SCH (09:29)
[2016-06-28] MEDS: ISOSORBIDE MONONITRATE 30 MG TABLET PO SCH (09:29)
[2016-06-28] MEDS: sitaGLIPtin 100 MG TABLET PO SCH (09:29)
[2016-06-28] MEDS: GABAPENTIN 100 MG CAPSULE PO SCH (09:30)
[2016-06-28] MEDS: FUROSEMIDE 80 MG TABLET PO SCH (09:30)
[2016-06-28] MEDS: PANTOPRAZOLE 40 MG TABLET PO SCH (09:30)
== END 2016-06-28 12:50 | disposition home or self-care (01) ==
LOC: N.ED 11:38 → N.EDINP 13:16 → INTOOBSV 13:16 → N.TELES 13:42
PROVIDERS: ADMIT Internal Medicine Cardiovascular Disease; ATTEND Internal Medicine Cardiovascular Disease

== ENCOUNTER 2017-03-04 17:09 | Inpatient (IN) ==
[2017-03-04] MEDS ORDERED: NITROGLYCERIN 2% OINT 1 INCH/GM PACK TOP STA (18:26)
[2017-03-04] MEDS ORDERED: MORPHINE 2 MG/1 ML SYRINGE IV STA (18:26)
[2017-03-04] MEDS ORDERED: ASPIRIN 325 MG TABLET PO STA (18:26)
[2017-03-04] MEDS ORDERED: FUROSEMIDE 100 MG/10 ML VIAL IV STA (18:26)
[2017-03-04] MEDS ORDERED: ONDANSETRON 4 MG/2 ML VIAL IV STA (18:26)
[2017-03-04] MEDS ORDERED: ALBUTEROL 2.5 MG/3 ML NEB RESP TX SCH (18:30)
[2017-03-04] MEDS ORDERED: ONDANSETRON 4 MG/2 ML VIAL ONE (18:41)
[2017-03-04] MEDS ORDERED: NITROGLYCERIN 2% OINT 1 INCH/GM PACK TOP ONE (18:41)
[2017-03-04] MEDS ORDERED: FUROSEMIDE 40 MG/4 ML VIAL ONE (18:41)
[2017-03-04] MEDS ORDERED: MORPHINE 2 MG/1 ML SYRINGE ONE (18:42)
[2017-03-04] MEDS ORDERED: FUROSEMIDE 20 MG/2 ML VIAL ONE (18:42)
[2017-03-04] MEDS ORDERED: ASPIRIN 325 MG TABLET ONE (18:42)
[2017-03-04 18:43] LABS: Basophils % 0.3 % (0.0-0.8); Eosinophils # 0.2 10*3/uL (0.0-0.87); Eosinophils % 1.5 % (0.00-10.9); Hemoglobin 13.6 GM/DL (14.0-18.0); Immature Granulocytes % 0.6 %; Immature Granulocytes Absolute 0.07 #; Lymphocytes # 3.5 10*3/uL (1.4-4.0); Lymphocytes % 29.5 % (21.2-54.2); Mean Corpuscular HGB Conc 32.4 GM/DL (32-36); Mean Corpuscular Hemoglobin 32 PG (27-34); Mean Platelet Volume 10.7 FL (9.6-12.0); Monocytes # 0.8 10*3/uL (0.11-0.8); Monocytes % 7.2 % (1.7-12.7); Neutrophils # 7.1 10*3/uL (1.4-7.4); Neutrophils % 60.9 % (38.7-73.9); Platelet Count 165 T/CUMM (130-400); Red Cell Distribution Width 12.5 % (9.3-17.3); White Blood Count 11.7 T/CUMM (4-12)
[2017-03-04 18:51] LABS: PT Patient Result 10.7 SECS
[2017-03-04 18:57] LABS: Albumin 3.2 G/DL (3.4-5.0); Bilirubin,Total 0.6 MG/DL (0.2-1.0); Calcium 8.5 MG/DL (8.5-10.1); Magnesium 1.9 MG/DL (1.8-2.4); Osmolality,Calculated 280.5 MOS/KG (273-304); Potassium 3.3 MMOL/L (3.5-5.1); Total Protein 7.2 G/DL (6.4-8.3); Troponin I Only 0.028 NG/ML (0.00-0.045)
[2017-03-04 20:06] LABS: Apearance,Urine CLEAR (Clear); Bilirubin,Urine Negative (Negative); Blood, Urine Small mg/dL (Negative); Glucose,Urine (UA) Negative (Negative); Hyaline Casts,Urine 1 /LPF (0-3); Ketones,Urine Negative (Negative); Mucus,Urine Occasional /LPF (Occasional); Nitrite,Urine Negative (Negative); Protein,Urine Negative; RBC,Urine 1 /HPF (0-4); Squamous Epithelial Cell,Urine Occasional /HPF (0-10); Urine Color Yellow (Yellow); Urine Specific Gravity 1.006 (1.001-1.035); Urine Urobilinogen < 2.0 EU/DL (0.2-1.0); WBC,Urine <1 /HPF (0-6)
[2017-03-04] MEDS ORDERED: HEPARIN 1,000 UNIT/1 ML VIAL IV STA (21:11)
[2017-03-04] MEDS ORDERED: HEPARIN 5,000 UNIT/1 ML VIAL ONE (21:25)
[2017-03-04] MEDS ORDERED: HEPARIN DRIP 25,000 UNITS/500 ML PREMIX IV ONE (21:25)
[2017-03-04] MEDS: HEPARIN DRIP 25,000 UNITS/500 ML PREMIX IV SCH (21:53)
[2017-03-04] MEDS ORDERED: MORPHINE 2 MG/1 ML SYRINGE IV PRN (22:56)
[2017-03-04] MEDS ORDERED: ONDANSETRON 4 MG/2 ML VIAL IV PRN (22:56)
[2017-03-04] MEDS ORDERED: ALBUTEROL/IPRATROPIUM 3 ML NEB RESP TX PRN (22:56)
[2017-03-04] MEDS ORDERED: GLUCAGON 1 MG VIAL IM PRN (22:56)
[2017-03-04] MEDS ORDERED: DEXTROSE 50% 25 GM/50 ML VIAL IV PRN (22:56)
[2017-03-04] MEDS: SODIUM CHLORIDE 0.9% 1,000 ML IV SCH (23:15)
[2017-03-04] MEDS ORDERED: POTASSIUM CHLORIDE 20 MEQ TABLET PO ONE (23:30)
[2017-03-05] MEDS: PANTOPRAZOLE 40 MG VIAL IV SCH ×2 (00:29→22:58)
[2017-03-05] MEDS: INSULIN REGULAR 100 UNIT/ML SUBCUT SCH ×5 (00:29→20:51)
[2017-03-05 01:04] LABS: Risk Ratio 5.51; VLDL CHOLESTEROL 14.8 MG/DL
[2017-03-05] MEDS: ALBUTEROL/IPRATROPIUM 3 ML NEB RESP TX SCH ×4 (01:40→19:54)
[2017-03-05] MEDS: hydrALAZINE 20 MG/1 ML VIAL IV PRN (04:36)
[2017-03-05 05:16] LABS: Basophils # 0.1 10*3/uL (0.0-0.2); Basophils % 0.4 % (0.0-0.8); Eosinophils # 0.2 10*3/uL (0.0-0.87); Eosinophils % 1.5 % (0.00-10.9); Hematocrit 40.6 VOL% (42.0-52.0); Hemoglobin 13.3 GM/DL (14.0-18.0); Immature Granulocytes % 0.5 %; Immature Granulocytes Absolute 0.06 #; Lymphocytes # 3.8 10*3/uL (1.4-4.0); Lymphocytes % 33.2 % (21.2-54.2); Mean Corpuscular HGB Conc 32.8 GM/DL (32-36); Mean Corpuscular Hemoglobin 33 PG (27-34); Mean Corpuscular Volume 100.7 FL (87-102); Mean Platelet Volume 10.3 FL (9.6-12.0); Monocytes # 1.1 10*3/uL (0.11-0.8); Monocytes % 9.2 % (1.7-12.7); Neutrophils # 6.3 10*3/uL (1.4-7.4); Neutrophils % 55.2 % (38.7-73.9); Platelet Count 153 T/CUMM (130-400); Red Blood Count 4.03 MC/CUMM (3.8-5.5); Red Cell Distribution Width 12.6 % (9.3-17.3); White Blood Count 11.4 T/CUMM (4-12)
[2017-03-05 06:05] LABS: Calcium 8.3 MG/DL (8.5-10.1); Osmolality,Calculated 283.3 MOS/KG (273-304); Potassium 3.4 MMOL/L (3.5-5.1)
[2017-03-05] MEDS ORDERED: NITROGLYCERIN SL 0.4 MG TABLET SL PRN (09:04)
[2017-03-05] MEDS: THEOPHYLLINE ER 300 MG TABLET PO SCH ×2 (10:43→20:36)
[2017-03-05] MEDS: DOCUSATE SODIUM 100 MG CAPSULE PO SCH ×2 (10:43→20:37)
[2017-03-05] MEDS: SODIUM CHLORIDE 0.9% 1,000 ML IV SCH (12:24)
[2017-03-05] MEDS: HEPARIN DRIP 25,000 UNITS/500 ML PREMIX IV SCH ×2 (13:09→22:52)
[2017-03-05] MEDS: INSULIN NPH/REGULAR 70/30 100 UNIT/ML SUBCUT SCH (18:14)
[2017-03-05] MEDS: CARVEDILOL 25 MG TABLET PO SCH (20:36)
[2017-03-05] MEDS: LOSARTAN 50 MG TABLET PO SCH (20:37)
[2017-03-05] MEDS: NORTRIPTYLINE 10 MG CAPSULE PO SCH (20:37)
[2017-03-05] MEDS: MAGNESIUM OXIDE 400 MG TABLET PO SCH (20:37)
[2017-03-06] MEDS: hydrALAZINE 20 MG/1 ML VIAL IV PRN (00:17)
[2017-03-06] MEDS: ALBUTEROL/IPRATROPIUM 3 ML NEB RESP TX SCH ×3 (00:54→14:18)
[2017-03-06] MEDS: SODIUM CHLORIDE 0.9% 1,000 ML IV SCH ×2 (01:55→15:08)
[2017-03-06] MEDS: HEPARIN DRIP 25,000 UNITS/500 ML PREMIX IV SCH ×2 (03:49→20:58)
[2017-03-06 05:10] LABS: Basophils % 0.3 % (0.0-0.8); Eosinophils # 0.2 10*3/uL (0.0-0.87); Eosinophils % 2.2 % (0.00-10.9); Hematocrit 38.6 VOL% (42.0-52.0); Hemoglobin 12.5 GM/DL (14.0-18.0); Immature Granulocytes % 0.5 %; Lymphocytes # 3.3 10*3/uL (1.4-4.0); Mean Corpuscular HGB Conc 32.4 GM/DL (32-36); Mean Corpuscular Hemoglobin 33 PG (27-34); Mean Corpuscular Volume 100.8 FL (87-102); Mean Platelet Volume 10.8 FL (9.6-12.0); Monocytes # 0.9 10*3/uL (0.11-0.8); Monocytes % 7.9 % (1.7-12.7); Neutrophils # 6.5 10*3/uL (1.4-7.4); Neutrophils % 59.1 % (38.7-73.9); Platelet Count 148 T/CUMM (130-400); Red Blood Count 3.83 MC/CUMM (3.8-5.5); Red Cell Distribution Width 12.5 % (9.3-17.3)
[2017-03-06 05:11] LABS: Immature Granulocytes Absolute 0.06 #
[2017-03-06 05:38] LABS: Calcium 7.7 MG/DL (8.5-10.1); Osmolality,Calculated 279.4 MOS/KG (273-304); Potassium 3.3 MMOL/L (3.5-5.1)
[2017-03-06] MEDS: POTASSIUM CHLORIDE 20 MEQ TABLET PO SCH ×3 (06:41→15:13)
[2017-03-06] MEDS ORDERED: BENZONATATE 100 MG CAPSULE PO PRN (07:40)
[2017-03-06] MEDS: INSULIN REGULAR 100 UNIT/ML SUBCUT SCH ×4 (08:24→20:23)
[2017-03-06] MEDS ORDERED: amLODIPine 10 MG TABLET PO SCH (09:00)
[2017-03-06] MEDS: CHOLECALCIFEROL 1,000 UNIT TABLET PO SCH (09:10)
[2017-03-06] MEDS: LOSARTAN 50 MG TABLET PO SCH ×2 (09:10→20:24)
[2017-03-06] MEDS: cloNIDine 0.1 MG TABLET PO SCH ×3 (09:10→20:20)
[2017-03-06] MEDS: DOCUSATE SODIUM 100 MG CAPSULE PO SCH ×2 (09:10→20:19)
[2017-03-06] MEDS: CARVEDILOL 25 MG TABLET PO SCH ×2 (09:11→20:19)
[2017-03-06] MEDS: ASPIRIN EC 81 MG TABLET PO SCH (09:11)
[2017-03-06] MEDS: sitaGLIPtin 100 MG TABLET PO SCH (09:11)
[2017-03-06] MEDS: MAGNESIUM OXIDE 400 MG TABLET PO SCH ×2 (09:11→20:24)
[2017-03-06] MEDS: THEOPHYLLINE ER 300 MG TABLET PO SCH ×2 (09:11→20:30)
[2017-03-06] MEDS: INSULIN NPH/REGULAR 70/30 100 UNIT/ML SUBCUT SCH ×2 (10:44→20:19)
[2017-03-06] MEDS ORDERED: MORPHINE 10 MG/1 ML VIAL IV PRN (14:30)
[2017-03-06] MEDS: NORTRIPTYLINE 10 MG CAPSULE PO SCH (20:19)
[2017-03-06] MEDS: PANTOPRAZOLE 40 MG VIAL IV SCH (22:04)
[2017-03-07] MEDS: SODIUM CHLORIDE 0.9% 1,000 ML IV SCH ×2 (00:37→18:35)
[2017-03-07] MEDS: ALBUTEROL/IPRATROPIUM 3 ML NEB RESP TX SCH ×5 (00:53→19:07)
[2017-03-07 05:04] LABS: Basophils % 0.3 % (0.0-0.8); Eosinophils # 0.2 10*3/uL (0.0-0.87); Eosinophils % 1.8 % (0.00-10.9); Hematocrit 36.5 VOL% (42.0-52.0); Hemoglobin 11.9 GM/DL (14.0-18.0); Immature Granulocytes % 0.4 %; Immature Granulocytes Absolute 0.04 #; Lymphocytes # 2.5 10*3/uL (1.4-4.0); Lymphocytes % 24.2 % (21.2-54.2); Mean Corpuscular HGB Conc 32.6 GM/DL (32-36); Mean Corpuscular Hemoglobin 33 PG (27-34); Mean Corpuscular Volume 101.7 FL (87-102); Mean Platelet Volume 10.6 FL (9.6-12.0); Monocytes # 0.9 10*3/uL (0.11-0.8); Monocytes % 8.6 % (1.7-12.7); Neutrophils # 6.6 10*3/uL (1.4-7.4); Neutrophils % 64.7 % (38.7-73.9); Platelet Count 142 T/CUMM (130-400); Red Blood Count 3.59 MC/CUMM (3.8-5.5); Red Cell Distribution Width 12.3 % (9.3-17.3); White Blood Count 10.2 T/CUMM (4-12)
[2017-03-07 05:29] LABS: Calcium 7.7 MG/DL (8.5-10.1); Osmolality,Calculated 284.1 MOS/KG (273-304); Potassium 3.8 MMOL/L (3.5-5.1)
[2017-03-07] MEDS ORDERED: KETOCONAZOLE 2% CREAM 30 GM TUBE TOP PRN (07:32)
[2017-03-07] MEDS: INSULIN REGULAR 100 UNIT/ML SUBCUT SCH ×4 (08:02→23:00)
[2017-03-07] MEDS ORDERED: APIXABAN 5 MG TABLET PO SCH (09:00)
[2017-03-07] MEDS: CYANOCOBALAMIN 500 MCG TABLET PO SCH (10:07)
[2017-03-07] MEDS: MAGNESIUM OXIDE 400 MG TABLET PO SCH ×2 (10:07→22:58)
[2017-03-07] MEDS: cloNIDine 0.1 MG TABLET PO SCH ×3 (10:07→22:58)
[2017-03-07] MEDS: ASPIRIN EC 81 MG TABLET PO SCH (10:08)
[2017-03-07] MEDS: OMEGA 3 ACID ETHYL ESTERS 1 GM CAPSULE PO SCH ×2 (10:08→22:58)
[2017-03-07] MEDS: CHOLECALCIFEROL 1,000 UNIT TABLET PO SCH (10:08)
[2017-03-07] MEDS: FUROSEMIDE 80 MG TABLET PO SCH (10:08)
[2017-03-07] MEDS: sitaGLIPtin 100 MG TABLET PO SCH (10:08)
[2017-03-07] MEDS: ISOSORBIDE MONONITRATE 30 MG TABLET PO SCH (10:08)
[2017-03-07] MEDS: DOCUSATE SODIUM 100 MG CAPSULE PO SCH ×2 (10:08→22:59)
[2017-03-07] MEDS: amLODIPine 5 MG TABLET PO SCH (10:09)
[2017-03-07] MEDS: CARVEDILOL 25 MG TABLET PO SCH ×2 (10:09→22:59)
[2017-03-07] MEDS: LOSARTAN 50 MG TABLET PO SCH ×2 (10:09→22:57)
[2017-03-07] MEDS: THEOPHYLLINE ER 300 MG TABLET PO SCH ×2 (10:09→22:57)
[2017-03-07] MEDS: SPIRONOLACTONE 25 MG TABLET PO SCH (10:09)
[2017-03-07] MEDS: INSULIN NPH/REGULAR 70/30 100 UNIT/ML SUBCUT SCH ×2 (10:10→22:59)
[2017-03-07] MEDS ORDERED: APIXABAN 5 MG TABLET PO ONE (11:30)
[2017-03-07] MEDS ORDERED: MULTIVITAMIN (CENTRUM) TABLET PO SCH (21:00)
[2017-03-07] MEDS: NORTRIPTYLINE 10 MG CAPSULE PO SCH (22:57)
[2017-03-07] MEDS: APIXABAN 5 MG TABLET PO SCH (22:58)
[2017-03-07] MEDS: PANTOPRAZOLE 40 MG VIAL IV SCH (23:00)
[2017-03-08] MEDS: ALBUTEROL/IPRATROPIUM 3 ML NEB RESP TX SCH ×2 (00:43→07:47)
[2017-03-08 06:33] LABS: Basophils % 0.3 % (0.0-0.8); Eosinophils # 0.3 10*3/uL (0.0-0.87); Eosinophils % 2.5 % (0.00-10.9); Hemoglobin 12.6 GM/DL (14.0-18.0); Immature Granulocytes % 0.5 %; Immature Granulocytes Absolute 0.06 #; Lymphocytes # 3.4 10*3/uL (1.4-4.0); Lymphocytes % 28.2 % (21.2-54.2); Mean Corpuscular HGB Conc 33.2 GM/DL (32-36); Mean Corpuscular Hemoglobin 33 PG (27-34); Mean Corpuscular Volume 99.7 FL (87-102); Mean Platelet Volume 10.7 FL (9.6-12.0); Monocytes # 0.9 10*3/uL (0.11-0.8); Monocytes % 7.4 % (1.7-12.7); Neutrophils # 7.4 10*3/uL (1.4-7.4); Neutrophils % 61.1 % (38.7-73.9); Platelet Count 185 T/CUMM (130-400); Red Blood Count 3.81 MC/CUMM (3.8-5.5); Red Cell Distribution Width 12.4 % (9.3-17.3); White Blood Count 12.1 T/CUMM (4-12)
[2017-03-08 06:56] LABS: Calcium 8.1 MG/DL (8.5-10.1); Osmolality,Calculated 285.1 MOS/KG (273-304); Potassium 3.3 MMOL/L (3.5-5.1)
[2017-03-08 07:53] VITALS: BP 168/74
[2017-03-08] MEDS ORDERED: POTASSIUM CHLORIDE 20 MEQ TABLET PO ONE (08:17)
[2017-03-08] MEDS: INSULIN REGULAR 100 UNIT/ML SUBCUT SCH (08:20)
[2017-03-08] MEDS: SODIUM CHLORIDE 0.9% 1,000 ML IV SCH (08:22)
[2017-03-08] MEDS: LOSARTAN 50 MG TABLET PO SCH (09:47)
[2017-03-08] MEDS: CYANOCOBALAMIN 500 MCG TABLET PO SCH (09:48)
[2017-03-08] MEDS: THEOPHYLLINE ER 300 MG TABLET PO SCH (09:48)
[2017-03-08] MEDS: ISOSORBIDE MONONITRATE 30 MG TABLET PO SCH (09:48)
[2017-03-08] MEDS: CHOLECALCIFEROL 1,000 UNIT TABLET PO SCH (09:48)
[2017-03-08] MEDS: DOCUSATE SODIUM 100 MG CAPSULE PO SCH (09:49)
[2017-03-08] MEDS: SPIRONOLACTONE 25 MG TABLET PO SCH (09:49)
[2017-03-08] MEDS: APIXABAN 5 MG TABLET PO SCH (09:49)
[2017-03-08] MEDS: MAGNESIUM OXIDE 400 MG TABLET PO SCH (09:49)
[2017-03-08] MEDS: OMEGA 3 ACID ETHYL ESTERS 1 GM CAPSULE PO SCH (09:49)
[2017-03-08] MEDS: FUROSEMIDE 80 MG TABLET PO SCH (09:49)
[2017-03-08] MEDS: amLODIPine 5 MG TABLET PO SCH (09:49)
[2017-03-08] MEDS: ASPIRIN EC 81 MG TABLET PO SCH (09:49)
[2017-03-08] MEDS: cloNIDine 0.1 MG TABLET PO SCH (09:49)
[2017-03-08] MEDS: INSULIN NPH/REGULAR 70/30 100 UNIT/ML SUBCUT SCH (09:50)
[2017-03-08] MEDS: sitaGLIPtin 100 MG TABLET PO SCH (09:50)
[2017-03-08] MEDS: CARVEDILOL 25 MG TABLET PO SCH (09:50)
== END 2017-03-08 11:40 | disposition home or self-care (01) | DRG 176 ==
LOC: N.ED 17:09 → N.EDINP 21:09 → SUATTDRO 21:09 → N.CC 22:25 → N.4E 03-06 15:46
PROVIDERS: ADMIT Internal Medicine; ATTEND Internal Medicine

== ENCOUNTER 2017-03-24 07:27 | Inpatient (IN) ==
[2017-03-24] MEDS ORDERED: SODIUM CHLORIDE 0.9% 500 ML IV STA (07:57)
[2017-03-24] MEDS ORDERED: ONDANSETRON 4 MG/2 ML VIAL IV STA (07:57)
[2017-03-24] MEDS ORDERED: ONDANSETRON 4 MG/2 ML VIAL ONE (08:11)
[2017-03-24 08:38] LABS: Basophils % 0.3 % (0.0-0.8); Eosinophils # 0.1 10*3/uL (0.0-0.87); Eosinophils % 0.9 % (0.00-10.9); Hematocrit 39.8 VOL% (42.0-52.0); Hemoglobin 13.1 GM/DL (14.0-18.0); Immature Granulocytes % 0.7 %; Immature Granulocytes Absolute 0.09 #; Lymphocytes # 2.2 10*3/uL (1.4-4.0); Lymphocytes % 17.4 % (21.2-54.2); Mean Corpuscular HGB Conc 32.9 GM/DL (32-36); Mean Corpuscular Hemoglobin 33 PG (27-34); Mean Platelet Volume 10.2 FL (9.6-12.0); Monocytes % 7.5 % (1.7-12.7); Neutrophils # 9.4 10*3/uL (1.4-7.4); Neutrophils % 73.2 % (38.7-73.9); Platelet Count 179 T/CUMM (130-400); Red Blood Count 3.98 MC/CUMM (3.8-5.5); Red Cell Distribution Width 12.4 % (9.3-17.3); White Blood Count 12.8 T/CUMM (4-12)
[2017-03-24 09:03] LABS: Lactic Acid 0.7 MMOL/L (0.4-2.0)
[2017-03-24 09:05] LABS: Alanine Aminotransferase 24 U/L (16-61); Albumin 3.2 G/DL (3.4-5.0); Alkaline Phosphatase 67 U/L (45-117); Amylase 67 U/L (25-115); Aspartate Amino Transferase 22 U/L (0-37); Blood Urea Nitrogen 41 MG/DL (7-18); Calcium 9.1 MG/DL (8.5-10.1); Glucose 83 MG/DL (74-106); Osmolality,Calculated 283.7 MOS/KG (273-304); Potassium 3.6 MMOL/L (3.5-5.1); Sodium 138 MMOL/L (136-145); Total Protein 7.1 G/DL (6.4-8.3); Troponin I Only < 0.015 NG/ML (0.00-0.045)
[2017-03-24] MEDS ORDERED: NITROGLYCERIN SL 0.4 MG TABLET SL PRN (13:15)
[2017-03-24] MEDS ORDERED: KETOCONAZOLE 2% CREAM 30 GM TUBE TOP PRN (13:15)
[2017-03-24] MEDS ORDERED: ALBUTEROL 2.5 MG/3 ML NEB RESP TX PRN (13:15)
[2017-03-24] MEDS ORDERED: ALBUTEROL/IPRATROPIUM 3 ML NEB RESP TX PRN (13:15)
[2017-03-24] MEDS ORDERED: cloNIDine 0.1 MG TABLET PO PRN (13:15)
[2017-03-24] MEDS ORDERED: DOCUSATE SODIUM 100 MG CAPSULE PO PRN (13:19)
[2017-03-24] MEDS ORDERED: diphenhydrAMINE CAP 25 MG CAPSULE PO PRN (13:19)
[2017-03-24] MEDS ORDERED: ONDANSETRON 4 MG/2 ML VIAL IV PRN (13:19)
[2017-03-24] MEDS ORDERED: ACETAMINOPHEN 325 MG TABLET PO PRN (13:19)
[2017-03-24] MEDS ORDERED: CIPROFLOXACIN INJ 400 MG in PREMIX 1 EACH IV SCH (13:30)
[2017-03-24] MEDS ORDERED: GLUCAGON 1 MG VIAL IM PRN (14:55)
[2017-03-24] MEDS ORDERED: DEXTROSE 50% 25 GM/50 ML VIAL IV PRN (14:55)
[2017-03-24] MEDS ORDERED: CIPROFLOXACIN INJ 200 MG in PREMIX 1 EACH IV SCH (15:00)
[2017-03-24] MEDS: SODIUM CHLORIDE 0.9% 1,000 ML IV SCH ×2 (15:20→22:01)
[2017-03-24] MEDS: THEOPHYLLINE ER 300 MG TABLET PO SCH ×2 (15:21→20:27)
[2017-03-24] MEDS: PANTOPRAZOLE 40 MG TABLET PO SCH (15:21)
[2017-03-24] MEDS: CARVEDILOL 25 MG TABLET PO SCH ×2 (15:21→20:27)
[2017-03-24] MEDS: metroNIDAZOLE INJ 500 MG in PREMIX 1 EACH IV SCH ×2 (15:27→21:09)
[2017-03-24 15:38] LABS: Apearance,Urine CLEAR (Clear); Bilirubin,Urine Negative (Negative); Blood, Urine Negative (Negative); Glucose,Urine (UA) Negative (Negative); Ketones,Urine Negative (Negative); Nitrite,Urine Negative (Negative); Protein,Urine Negative; RBC,Urine <1 /HPF (0-4); Urine Color Yellow (Yellow); Urine Specific Gravity 1.005 (1.001-1.035); Urine Urobilinogen < 2.0 EU/DL (0.2-1.0); WBC,Urine 1 /HPF (0-6)
[2017-03-24] MEDS ORDERED: ENOXAPARIN 150 MG/ML SYRINGE SUBCUT SCH (16:00)
[2017-03-24] MEDS: INSULIN LISPRO 100 UNIT/ML SUBCUT SCH (16:23)
[2017-03-24] MEDS: CIPROFLOXACIN INJ 200 MG in PREMIX 1 EACH IV SCH (16:57)
[2017-03-24] MEDS: ATORVASTATIN 80 MG TABLET PO SCH (20:27)
[2017-03-24] MEDS: MULTIVITAMIN (CENTRUM) TABLET PO SCH (20:27)
[2017-03-24] MEDS: NORTRIPTYLINE 10 MG CAPSULE PO SCH (20:27)
[2017-03-24] MEDS: SUCRALFATE 1 GM TABLET PO SCH (21:12)
[2017-03-25 03:26] LABS: Basophils % 0.3 % (0.0-0.8); Eosinophils # 0.1 10*3/uL (0.0-0.87); Eosinophils % 0.9 % (0.00-10.9); Hematocrit 37.7 VOL% (42.0-52.0); Hemoglobin 12.1 GM/DL (14.0-18.0); Immature Granulocytes % 0.5 %; Immature Granulocytes Absolute 0.06 #; Lymphocytes # 2.6 10*3/uL (1.4-4.0); Lymphocytes % 22.3 % (21.2-54.2); Mean Corpuscular HGB Conc 32.1 GM/DL (32-36); Mean Corpuscular Hemoglobin 32 PG (27-34); Mean Corpuscular Volume 100.8 FL (87-102); Mean Platelet Volume 10.7 FL (9.6-12.0); Monocytes # 0.8 10*3/uL (0.11-0.8); Platelet Count 180 T/CUMM (130-400); Red Blood Count 3.74 MC/CUMM (3.8-5.5); Red Cell Distribution Width 12.3 % (9.3-17.3); White Blood Count 11.6 T/CUMM (4-12)
[2017-03-25 04:48] LABS: Calcium 8.4 MG/DL (8.5-10.1); Magnesium 1.9 MG/DL (1.8-2.4); Osmolality,Calculated 286.5 MOS/KG (273-304); Potassium 3.5 MMOL/L (3.5-5.1)
[2017-03-25] MEDS: metroNIDAZOLE INJ 500 MG in PREMIX 1 EACH IV SCH ×4 (04:57→21:37)
[2017-03-25] MEDS: CIPROFLOXACIN INJ 200 MG in PREMIX 1 EACH IV SCH ×2 (05:59→18:15)
[2017-03-25] MEDS: SUCRALFATE 1 GM TABLET PO SCH ×3 (10:13→17:08)
[2017-03-25] MEDS: SODIUM CHLORIDE 0.9% 1,000 ML IV SCH ×2 (10:13→10:21)
[2017-03-25] MEDS: INSULIN LISPRO 100 UNIT/ML SUBCUT SCH ×2 (10:13→17:09)
[2017-03-25] MEDS: CARVEDILOL 25 MG TABLET PO SCH ×2 (10:14→21:37)
[2017-03-25] MEDS: ASPIRIN EC 81 MG TABLET PO SCH (10:14)
[2017-03-25] MEDS: PANTOPRAZOLE 40 MG TABLET PO SCH (10:14)
[2017-03-25] MEDS: CHOLECALCIFEROL 1,000 UNIT TABLET PO SCH (10:15)
[2017-03-25] MEDS: THEOPHYLLINE ER 300 MG TABLET PO SCH ×2 (10:15→21:37)
[2017-03-25] MEDS: CYANOCOBALAMIN 500 MCG TABLET PO SCH (10:15)
[2017-03-25] MEDS: ENOXAPARIN 150 MG/ML SYRINGE SUBCUT SCH ×2 (10:20→21:36)
[2017-03-25] MEDS: MULTIVITAMIN (CENTRUM) TABLET PO SCH (21:37)
[2017-03-25] MEDS: ATORVASTATIN 80 MG TABLET PO SCH (21:37)
[2017-03-25] MEDS: NORTRIPTYLINE 10 MG CAPSULE PO SCH (21:39)
[2017-03-26] MEDS: SODIUM CHLORIDE 0.9% 1,000 ML IV SCH (02:52)
[2017-03-26] MEDS: metroNIDAZOLE INJ 500 MG in PREMIX 1 EACH IV SCH ×2 (04:18→10:34)
[2017-03-26] MEDS: CIPROFLOXACIN INJ 200 MG in PREMIX 1 EACH IV SCH (05:16)
[2017-03-26 07:05] LABS: Basophils % 0.2 % (0.0-0.8); Eosinophils # 0.2 10*3/uL (0.0-0.87); Eosinophils % 2.4 % (0.00-10.9); Hematocrit 38.3 VOL% (42.0-52.0); Hemoglobin 12.6 GM/DL (14.0-18.0); Immature Granulocytes % 0.4 %; Immature Granulocytes Absolute 0.03 #; Lymphocytes # 2.5 10*3/uL (1.4-4.0); Lymphocytes % 29.7 % (21.2-54.2); Mean Corpuscular HGB Conc 32.9 GM/DL (32-36); Mean Corpuscular Hemoglobin 33 PG (27-34); Mean Corpuscular Volume 99.7 FL (87-102); Mean Platelet Volume 10.5 FL (9.6-12.0); Monocytes # 0.7 10*3/uL (0.11-0.8); Monocytes % 8.2 % (1.7-12.7); Neutrophils % 59.1 % (38.7-73.9); Platelet Count 175 T/CUMM (130-400); Red Blood Count 3.84 MC/CUMM (3.8-5.5); White Blood Count 8.5 T/CUMM (4-12)
[2017-03-26 07:41] LABS: Albumin 3.2 G/DL (3.4-5.0); Bilirubin,Total 1.1 MG/DL (0.2-1.0); Calcium 8.4 MG/DL (8.5-10.1); Osmolality,Calculated 284.4 MOS/KG (273-304); Potassium 3.7 MMOL/L (3.5-5.1); Total Protein 7.2 G/DL (6.4-8.3)
[2017-03-26] MEDS ORDERED: INSULIN NPH/REGULAR 70/30 100 UNIT/ML SUBCUT SCH ×2 (08:00→17:00)
[2017-03-26] MEDS: INSULIN LISPRO 100 UNIT/ML SUBCUT SCH (08:00)
[2017-03-26] MEDS: PANTOPRAZOLE 40 MG TABLET PO SCH (08:51)
[2017-03-26] MEDS: SUCRALFATE 1 GM TABLET PO SCH ×2 (08:51→10:48)
[2017-03-26] MEDS: THEOPHYLLINE ER 300 MG TABLET PO SCH (08:51)
[2017-03-26] MEDS: CHOLECALCIFEROL 1,000 UNIT TABLET PO SCH (08:51)
[2017-03-26] MEDS: CYANOCOBALAMIN 500 MCG TABLET PO SCH (08:51)
[2017-03-26] MEDS: ASPIRIN EC 81 MG TABLET PO SCH (08:51)
[2017-03-26] MEDS: CARVEDILOL 25 MG TABLET PO SCH (08:51)
[2017-03-26] MEDS ORDERED: APIXABAN 5 MG TABLET PO SCH (09:00)
[2017-03-26] MEDS ORDERED: sitaGLIPtin 100 MG TABLET PO SCH (09:00)
[2017-03-26] MEDS ORDERED: OMEGA 3 ACID ETHYL ESTERS 1 GM CAPSULE PO SCH (09:00)
[2017-03-26] MEDS ORDERED: MAGNESIUM OXIDE 400 MG TABLET PO SCH (09:00)
[2017-03-26 12:12] VITALS: BP 181/96
== END 2017-03-26 12:22 | disposition home or self-care (01) | DRG 392 ==
LOC: N.ED 07:27 → N.EDINP 13:18 → N.2E 14:25
PROVIDERS: ADMIT Family Medicine; ATTEND Family Medicine

== ENCOUNTER 2018-02-27 18:09 | Observation (INO) ==
[2018-02-27 20:09] LABS: Basophils % 0.4 % (0.0-0.8); Eosinophils # 0.2 10*3/uL (0.0-0.87); Eosinophils % 1.6 % (0.00-10.9); Hematocrit 40.9 VOL% (42.0-52.0); Hemoglobin 13.1 GM/DL (14.0-18.0); Immature Granulocytes % 0.6 %; Immature Granulocytes Absolute 0.06 #; Lymphocytes # 3.1 10*3/uL (1.4-4.0); Lymphocytes % 31.7 % (21.2-54.2); Mean Corpuscular Hemoglobin 32 PG (27-34); Mean Corpuscular Volume 99.5 FL (87-102); Mean Platelet Volume 10.6 FL (9.6-12.0); Monocytes # 0.7 10*3/uL (0.11-0.8); Monocytes % 7.2 % (1.7-12.7); Neutrophils # 5.6 10*3/uL (1.4-7.4); Neutrophils % 58.5 % (38.7-73.9); Platelet Count 167 T/CUMM (130-400); Red Blood Count 4.11 MC/CUMM (3.8-5.5); Red Cell Distribution Width 12.5 % (9.3-17.3); White Blood Count 9.6 T/CUMM (4-12)
[2018-02-27 21:25] LABS: Albumin 2.8 G/DL (3.4-5.0); Calcium 8.6 MG/DL (8.5-10.1); Osmolality,Calculated 275.5 MOS/KG (273-304); Potassium 3.8 MMOL/L (3.5-5.1); Total Protein 7.6 G/DL (6.4-8.3)
[2018-02-27] MEDS ORDERED: hydrALAZINE 20 MG/1 ML VIAL IV STA ×2 (21:45→22:51)
[2018-02-27] MEDS ORDERED: ACETAMINOPHEN 325 MG TABLET PO PRN (23:39)
[2018-02-27] MEDS ORDERED: MORPHINE 4 MG/1 ML VIAL IV PRN (23:39)
[2018-02-27] MEDS ORDERED: ONDANSETRON 4 MG/2 ML VIAL IV PRN (23:39)
[2018-02-27] MEDS ORDERED: NORTRIPTYLINE 10 MG CAPSULE PO SCH (23:45)
[2018-02-27] MEDS ORDERED: THEOPHYLLINE ER 300 MG TABLET PO SCH (23:45)
[2018-02-27] MEDS ORDERED: CARVEDILOL 25 MG TABLET PO SCH (23:45)
[2018-02-27] MEDS ORDERED: KETOCONAZOLE 2% CREAM 30 GM TUBE TOP PRN (23:48)
[2018-02-27] MEDS ORDERED: ALBUTEROL 2.5 MG/3 ML NEB RESP TX PRN (23:48)
[2018-02-27] MEDS ORDERED: ALBUTEROL/IPRATROPIUM 3 ML NEB RESP TX PRN (23:48)
[2018-02-27] MEDS ORDERED: DEXTROSE 50% 25 GM/50 ML SYRINGE IV PRN (23:52)
[2018-02-27] MEDS ORDERED: GLUCAGON 1 MG VIAL IM PRN (23:52)
[2018-02-28] MEDS ORDERED: ENOXAPARIN 40 MG/0.4 ML SYRINGE SUBCUT SCH
[2018-02-28] MEDS: cloNIDine 0.1 MG TABLET PO PRN ×2 (01:01→10:21)
[2018-02-28] MEDS: ATORVASTATIN 80 MG TABLET PO SCH ×2 (01:01→21:24)
[2018-02-28] MEDS: NITROGLYCERIN 2% OINT 1 INCH/GM PACK TOP SCH ×2 (01:35→06:46)
[2018-02-28] MEDS: hydrALAZINE 20 MG/1 ML VIAL IV PRN ×3 (01:35→10:21)
[2018-02-28 04:45] LABS: Risk Ratio 5.06; VLDL CHOLESTEROL 38.2 MG/DL
[2018-02-28] MEDS ORDERED: INFLUENZA VIRUS VACCINE 0.5 ML SYRINGE IM ONE (09:00)
[2018-02-28] MEDS ORDERED: OMEGA 3 ACID ETHYL ESTERS 1 GM CAPSULE PO SCH (09:00)
[2018-02-28] MEDS ORDERED: CHOLECALCIFEROL 1,000 UNIT TABLET PO SCH (09:00)
[2018-02-28] MEDS: CYANOCOBALAMIN 500 MCG TABLET PO SCH (09:17)
[2018-02-28] MEDS: ASPIRIN EC 81 MG TABLET PO SCH (09:18)
[2018-02-28] MEDS: LOSARTAN 50 MG TABLET PO SCH (09:18)
[2018-02-28] MEDS: INSULIN REGULAR 100 UNIT/ML SUBCUT SCH ×4 (09:18→21:24)
[2018-02-28] MEDS: APIXABAN 5 MG TABLET PO SCH ×2 (09:18→21:24)
[2018-02-28] MEDS: CHLORTHALIDONE 25 MG TABLET PO SCH (09:18)
[2018-02-28] MEDS: MAGNESIUM OXIDE 400 MG TABLET PO SCH ×2 (09:18→21:24)
[2018-02-28] MEDS ORDERED: KETOROLAC 30 MG/1 ML VIAL IV ONE (10:29)
[2018-02-28] MEDS ORDERED: traMADol 50 MG TABLET PO PRN (10:29)
[2018-02-28] MEDS ORDERED: METHOCARBAMOL 500 MG TABLET PO PRN (10:30)
[2018-02-28] MEDS ORDERED: DEXTROSE 50% 25 GM/50 ML VIAL IV PRN (11:41)
[2018-02-28] MEDS ORDERED: GLUCAGON 1 MG VIAL IM PRN (11:41)
[2018-02-28] MEDS: CARVEDILOL 6.25 MG TABLET PO SCH ×2 (13:35→21:24)
[2018-02-28] MEDS ORDERED: MULTIVITAMIN (CENTRUM) TABLET PO SCH (21:00)
[2018-03-01 06:03] LABS: Basophils % 0.2 % (0.0-0.8); Eosinophils # 0.1 10*3/uL (0.0-0.87); Hematocrit 40.8 VOL% (42.0-52.0); Hemoglobin 12.7 GM/DL (14.0-18.0); Immature Granulocytes % 0.4 %; Immature Granulocytes Absolute 0.04 #; Lymphocytes # 2.1 10*3/uL (1.4-4.0); Mean Corpuscular HGB Conc 31.1 GM/DL (32-36); Mean Corpuscular Hemoglobin 31 PG (27-34); Mean Platelet Volume 10.8 FL (9.6-12.0); Monocytes # 0.8 10*3/uL (0.11-0.8); Neutrophils # 6.1 10*3/uL (1.4-7.4); Neutrophils % 66.4 % (38.7-73.9); Platelet Count 159 T/CUMM (130-400); Red Blood Count 4.08 MC/CUMM (3.8-5.5); Red Cell Distribution Width 12.7 % (9.3-17.3); White Blood Count 9.2 T/CUMM (4-12)
[2018-03-01 06:25] LABS: Calcium 8.3 MG/DL (8.5-10.1); Osmolality,Calculated 283.4 MOS/KG (273-304); Potassium 3.5 MMOL/L (3.5-5.1)
[2018-03-01] MEDS: INSULIN REGULAR 100 UNIT/ML SUBCUT SCH ×4 (08:32→21:35)
[2018-03-01] MEDS: APIXABAN 5 MG TABLET PO SCH ×2 (08:57→21:28)
[2018-03-01] MEDS: MAGNESIUM OXIDE 400 MG TABLET PO SCH ×2 (08:57→21:27)
[2018-03-01] MEDS: ASPIRIN EC 81 MG TABLET PO SCH (08:57)
[2018-03-01] MEDS: CYANOCOBALAMIN 500 MCG TABLET PO SCH (08:57)
[2018-03-01] MEDS: LOSARTAN 50 MG TABLET PO SCH (08:57)
[2018-03-01] MEDS: CARVEDILOL 6.25 MG TABLET PO SCH (08:57)
[2018-03-01] MEDS: CHLORTHALIDONE 25 MG TABLET PO SCH (08:57)
[2018-03-01] MEDS ORDERED: CARVEDILOL 6.25 MG TABLET PO ONE (12:30)
[2018-03-01] MEDS: ATORVASTATIN 80 MG TABLET PO SCH (21:27)
[2018-03-01] MEDS: CARVEDILOL 12.5 MG TABLET PO SCH (21:28)
[2018-03-02 07:36] VITALS: BP 142/69
[2018-03-02] MEDS: INSULIN REGULAR 100 UNIT/ML SUBCUT SCH (07:59)
[2018-03-02] MEDS: MAGNESIUM OXIDE 400 MG TABLET PO SCH (08:00)
[2018-03-02] MEDS: ASPIRIN EC 81 MG TABLET PO SCH (08:00)
[2018-03-02] MEDS: CYANOCOBALAMIN 500 MCG TABLET PO SCH (08:01)
[2018-03-02] MEDS: LOSARTAN 50 MG TABLET PO SCH (08:01)
[2018-03-02] MEDS: CARVEDILOL 12.5 MG TABLET PO SCH (08:01)
[2018-03-02] MEDS: APIXABAN 5 MG TABLET PO SCH (08:01)
[2018-03-02] MEDS: CHLORTHALIDONE 25 MG TABLET PO SCH (08:02)
== END 2018-03-02 11:42 | disposition home or self-care (01) ==
LOC: N.ED 18:09 → N.EDINP 18:09 → N.ICU 23:46 → N.TELEN 03-01 13:55
PROVIDERS: ADMIT Internal Medicine; ATTEND Internal Medicine

== ENCOUNTER 2018-07-19 01:34 | Inpatient (IN) ==
[2018-07-18 10:37] LABS: Basophils % 0.4 % (0.0-0.8); Eosinophils # 0.1 10*3/uL (0.0-0.87); Eosinophils % 0.9 % (0.00-10.9); Hematocrit 35.4 VOL% (42.0-52.0); Immature Granulocytes % 0.9 %; Immature Granulocytes Absolute 0.07 #; Lymphocytes # 2.4 10*3/uL (1.4-4.0); Lymphocytes % 32.4 % (21.2-54.2); Mean Corpuscular HGB Conc 31.1 GM/DL (32-36); Mean Corpuscular Volume 103.8 FL (87-102); Mean Platelet Volume 10.2 FL (9.6-12.0); Monocytes % 7.9 % (1.7-12.7); Neutrophils % 57.5 % (38.7-73.9); Platelet Count 165 T/CUMM (130-400); Red Blood Count 3.41 MC/CUMM (3.8-5.5); Red Cell Distribution Width 12.6 % (9.3-17.3); White Blood Count 7.4 T/CUMM (4-12)
[2018-07-18 10:41] LABS: Apearance,Urine CLEAR (Clear); Bilirubin,Urine Negative (Negative); Blood, Urine Negative (Negative); Glucose,Urine (UA) 50 mg/dL (Negative); Ketones,Urine Negative (Negative); Nitrite,Urine Negative (Negative); Protein,Urine Negative; RBC,Urine <1 /HPF (0-4); Squamous Epithelial Cell,Urine Occasional /HPF (0-10); Urine Color Yellow (Yellow); Urine Specific Gravity 1.013 (1.001-1.035); Urine Urobilinogen < 2.0 EU/DL (0.2-1.0); WBC,Urine 1 /HPF (0-6)
[2018-07-18 10:46] LABS: PT Patient Result 10.7 SECS; Partial Thromboplastin Time 30.1 SECS (0-40)
[2018-07-18 10:57] LABS: Calcium 8.4 MG/DL (8.5-10.1); Osmolality,Calculated 288.4 MOS/KG (273-304)
[~2018-07-19 01:34] MED LIST: SODIUM CHLORIDE 0.9% 1,000 ML IV PRN
[2018-07-19] MEDS ORDERED: ASPIRIN 325 MG TABLET PO STA (01:50)
[2018-07-19] MEDS ORDERED: HEPARIN 1,000 UNIT/1 ML VIAL IV STA (01:53)
[2018-07-19] MEDS ORDERED: MORPHINE 4 MG/1 ML VIAL IV STA (01:54)
[2018-07-19] MEDS ORDERED: ONDANSETRON 4 MG/2 ML VIAL IV STA (01:54)
[2018-07-19] MEDS ORDERED: HEPARIN DRIP 25,000 UNITS/500 ML PREMIX IV SCH (02:00)
[2018-07-19 02:04] LABS: Basophils % 0.3 % (0.0-0.8); Eosinophils # 0.1 10*3/uL (0.0-0.87); Eosinophils % 0.9 % (0.00-10.9); Hematocrit 34.3 VOL% (42.0-52.0); Hemoglobin 10.8 GM/DL (14.0-18.0); Immature Granulocytes % 0.7 %; Immature Granulocytes Absolute 0.07 #; Lymphocytes # 3.3 10*3/uL (1.4-4.0); Lymphocytes % 33.1 % (21.2-54.2); Mean Corpuscular HGB Conc 31.5 GM/DL (32-36); Mean Corpuscular Volume 102.7 FL (87-102); Mean Platelet Volume 10.5 FL (9.6-12.0); Platelet Count 163 T/CUMM (130-400); Red Blood Count 3.34 MC/CUMM (3.8-5.5); White Blood Count 9.8 T/CUMM (4-12)
[2018-07-19 02:12] LABS: PT Patient Result 10.7 SECS; Partial Thromboplastin Time 28.9 SECS (0-40)
[2018-07-19 02:31] LABS: Albumin 3.1 G/DL (3.4-5.0); Bilirubin,Total 1.1 MG/DL (0.2-1.0); Calcium 8.3 MG/DL (8.5-10.1); Osmolality,Calculated 284.5 MOS/KG (273-304); Total Protein 7.4 G/DL (6.4-8.3)
[2018-07-19] MEDS ORDERED: ONDANSETRON 4 MG/2 ML VIAL IV PRN ×2 (02:43→12:09)
[2018-07-19] MEDS: NITROGLYCERIN DRIP 50 MG/250 ML BOTTLE IV SCH (02:59)
[2018-07-19] MEDS ORDERED: VANCOMYCIN 1,000 MG VIAL ONE (04:44)
[2018-07-19] MEDS ORDERED: PAPAVERINE 60 MG/2 ML VIAL ONE (04:44)
[2018-07-19] MEDS ORDERED: TISSUE ADHESIVE 1 EACH APPLICATOR TOP ONE (04:44)
[2018-07-19] MEDS ORDERED: SUFentanil 250 MCG/5 ML AMP ONE (05:53)
[2018-07-19] MEDS ORDERED: PROPOFOL 1,000 MG/100 ML BOTTLE IV ONE ×3 (05:54→11:57)
[2018-07-19] MEDS ORDERED: MIDAZOLAM 10 MG/2 ML VIAL ONE ×2 (05:54→11:57)
[2018-07-19] MEDS ORDERED: AMINOCAPROIC ACID 5,000 MG/20 ML VIAL ONE (06:30)
[2018-07-19] MEDS ORDERED: CEFUROXIME 1,500 MG VIAL ONE (07:10)
[2018-07-19 08:06] LABS: ABG Base Excess 1.3 MMOL/L (-2.5-2.5); ABG HCO3 25.9 MMOL/L (20-26); ABG Oxygen Saturation 99.2 % (95-100); ABG PCO2 40.9 MM HG (35-48); ABG PH 7.419 (7.35-7.45); ABG TCO2 27.1 MMOL/L (23-27); Glucose Heart Surgery 95 MG/DL (74-106); Hemoglobin Heart Surgery 10.1 G/DL (14.0-18.0); Ionized Calcium Arterial 1.07 MMOL/L (1.21-1.46); PCO2 Patient Temp Arterial 40.9 MMHG; PH Patient Temp Arterial 7.419; Patient Temperature 37 CELCIUS; Potassium Heart/CVR 3.7 MMOL/L (3.5-5.1); Sodium Heart/CVR 137 MMOL/L (135-145)
[2018-07-19 08:35] LABS: Apearance,Urine CLEAR (Clear); Bacteria,Urine Occasional /HPF (Few); Bilirubin,Urine Negative (Negative); Blood, Urine Negative (Negative); Glucose,Urine (UA) Negative (Negative); Hyaline Casts,Urine 1 /LPF (0-3); Ketones,Urine Negative (Negative); Mucus,Urine Occasional /LPF (Occasional); Nitrite,Urine Negative (Negative); Protein,Urine Negative; RBC,Urine <1 /HPF (0-4); Squamous Epithelial Cell,Urine Occasional /HPF (0-10); Urine Color Yellow (Yellow); Urine Specific Gravity 1.023 (1.001-1.035); Urine Urobilinogen < 2.0 EU/DL (0.2-1.0); WBC,Urine 1 /HPF (0-6)
[2018-07-19 09:31] LABS: Hematocrit Heart Surgery 22.2 PERCENT (42-52); Hemoglobin Heart Surgery 7.1 G/DL (14.0-18.0); PCO2 Patient Temp Venous 43.7 MM HG; PH Patient Temp Venous 7.393; PO2 Patient Temp Venous 42.1 MM HG; Potassium Heart/CVR 4.3 MMOL/L (3.5-5.1); VBG Base Excess 1.7 MEQ/L (0-4); VBG HCO3 25.8 MEQ/L (24-28); VBG Oxygen Saturation 81.9 %; VBG PCO2 48.1 MMHG (41-51); VBG PH 7.364; VBG PO2 48.2 MMHG (17-40)
[2018-07-19 10:00] LABS: Hematocrit Heart Surgery 21.7 PERCENT (42-52); Hemoglobin Heart Surgery 6.9 G/DL (14.0-18.0); PCO2 Patient Temp Venous 40.9 MM HG; PH Patient Temp Venous 7.41; Potassium Heart/CVR 4.3 MMOL/L (3.5-5.1); VBG Base Excess 1.3 MEQ/L (0-4); VBG HCO3 25.3 MEQ/L (24-28); VBG Oxygen Saturation 73.8 %; VBG PCO2 42.9 MMHG (41-51); VBG PH 7.395; VBG PO2 39.7 MMHG (17-40)
[2018-07-19] MEDS ORDERED: ALBUMIN 5% 12.5 GM/250 ML VIAL IV ONE (10:18)
[2018-07-19] MEDS ORDERED: POTASSIUM CHLORIDE RIDER 0 ML IV ONE (10:18)
[2018-07-19] MEDS ORDERED: PHENYLEPHRINE DRIP 40 MG/250 ML PREMIX IV ONE (10:18)
[2018-07-19] MEDS ORDERED: THROMBIN TOPICAL (RECOMBINANT) 5,000 UNIT VIAL TOP ONE (10:23)
[2018-07-19] MEDS ORDERED: DEXTROSE 5% KCL 20 MEQ 20 MEQ/1,000 ML BAG IV ONE (10:34)
[2018-07-19] MEDS ORDERED: MAGNESIUM SULFATE 5 GM/10 ML VIAL IV ONE (10:34)
[2018-07-19] MEDS ORDERED: MANNITOL 100 GM/500 ML BAG IV ONE (10:34)
[2018-07-19] MEDS ORDERED: ALBUMIN 25% 25 GM/100 ML VIAL IV ONE (10:34)
[2018-07-19] MEDS ORDERED: HEPARIN 10,000 UNIT/10 ML VIAL ONE (10:35)
[2018-07-19] MEDS ORDERED: FUROSEMIDE 20 MG/2 ML VIAL ONE (10:35)
[2018-07-19] MEDS ORDERED: PROTAMINE SULFATE 250 MG/25 ML VIAL IV ONE (10:36)
[2018-07-19] MEDS ORDERED: SODIUM BICARBONATE 50 MEQ/50 ML VIAL IV ONE (10:36)
[2018-07-19] MEDS ORDERED: methylPREDNISolone SOD SUC 1,000 MG/8 ML VIAL ONE (10:36)
[2018-07-19] MEDS ORDERED: PROTAMINE SULFATE 50 MG/5 ML VIAL IV ONE (10:37)
[2018-07-19 10:41] LABS: ABG Base Excess -1.4 MMOL/L (-2.5-2.5); ABG HCO3 23.3 MMOL/L (20-26); ABG Oxygen Saturation 99.8 % (95-100); ABG PCO2 46.2 MM HG (35-48); ABG PH 7.334 (7.35-7.45); Glucose Heart Surgery 269 MG/DL (74-106); Hematocrit Heart Surgery 25.1 PERCENT (42-52); Hemoglobin Heart Surgery 8.1 G/DL (14.0-18.0); PCO2 Patient Temp Arterial 46.2 MMHG; PH Patient Temp Arterial 7.334; Patient Temperature 37 CELCIUS; Potassium Heart/CVR 4.3 MMOL/L (3.5-5.1); Sodium Heart/CVR 133 MMOL/L (135-145)
[2018-07-19] MEDS ORDERED: PHENYLEPHRINE DRIP 40 MG/250 ML PREMIX IV PRN (11:18)
[2018-07-19] MEDS ORDERED: EPINEPHrine 1 MG/ML VIAL ONE ×2 (11:20→11:57)
[2018-07-19] MEDS ORDERED: CALCIUM CHLORIDE 1,000 MG/10 ML VIAL IV ONE (11:56)
[2018-07-19] MEDS ORDERED: SEVOFLURANE 1 UNIT/15 MINUTE INH ONE (11:56)
[2018-07-19] MEDS ORDERED: SUFentanil 50 MCG/ML AMP ONE (11:57)
[2018-07-19] MEDS ORDERED: ETOMIDATE 40 MG/20 ML VIAL IV ONE (11:57)
[2018-07-19] MEDS ORDERED: VECURONIUM 10 MG VIAL IV ONE (11:57)
[2018-07-19] MEDS ORDERED: PHENYLEPHRINE 1 MG/10 ML SYRINGE IV ONE (11:57)
[2018-07-19] MEDS ORDERED: SODIUM CHLORIDE 0.9% 1,000 ML IV ONE (11:58)
[2018-07-19] MEDS ORDERED: LACTATED RINGERS 2,000 ML IV ONE (11:58)
[2018-07-19] MEDS ORDERED: SODIUM CHLORIDE 0.9% 100 ML IV ONE (11:58)
[2018-07-19] MEDS ORDERED: SUCCINYLCHOLINE 200 MG/10 ML VIAL ONE (11:58)
[2018-07-19] MEDS ORDERED: SODIUM CHLORIDE 0.9% 250 ML IV ONE (11:58)
[2018-07-19] MEDS ORDERED: MAGNESIUM SULF RIDER 4 GM in PREMIX 1 EACH IV PRN (12:09)
[2018-07-19] MEDS ORDERED: SODIUM CHLORIDE 0.9% 250 ML IV PRN (12:09)
[2018-07-19] MEDS ORDERED: ACETAMINOPHEN 650 MG SUPP RECTAL PRN (12:09)
[2018-07-19] MEDS ORDERED: ALBUMIN 5% 12.5 GM in PREMIX 1 EACH IV PRN (12:09)
[2018-07-19] MEDS ORDERED: CALCIUM CHLORIDE 1,000 MG/10 ML SYRINGE IV PRN (12:09)
[2018-07-19] MEDS ORDERED: DEXTROSE 50% 25 GM/50 ML SYRINGE IV PRN ×2 (12:09)
[2018-07-19] MEDS ORDERED: CHLORHEXIDINE 4% SOLN 118 ML BOTTLE TOP PRN (12:09)
[2018-07-19 12:14] LABS: ABG Base Excess -0.1 MMOL/L (-2.5-2.5); ABG HCO3 24.3 MMOL/L (20-26); ABG Oxygen Saturation 96.9 % (95-100); ABG PCO2 42.9 MM HG (35-48); ABG PH 7.376 (7.35-7.45); ABG PO2 86.7 MM HG (80-95); ABG TCO2 23.3 MMOL/L (23-27); Basophils % 0.2 % (0.0-0.8); Eosinophils % 0.2 % (0.00-10.9); Glucose Heart Surgery 256 MG/DL (74-106); Hematocrit 27.5 VOL% (42.0-52.0); Hematocrit Heart Surgery 27.1 PERCENT (42-52); Hemoglobin 8.5 GM/DL (14.0-18.0); Hemoglobin Heart Surgery 8.7 G/DL (14.0-18.0); Immature Granulocytes % 1.3 %; Immature Granulocytes Absolute 0.16 #; Lymphocytes # 1.6 10*3/uL (1.4-4.0); Lymphocytes % 12.8 % (21.2-54.2); Mean Corpuscular HGB Conc 30.9 GM/DL (32-36); Mean Corpuscular Volume 106.2 FL (87-102); Mean Platelet Volume 10.2 FL (9.6-12.0); Monocytes % 3.7 % (1.7-12.7); Neutrophils % 81.8 % (38.7-73.9); Platelet Count 101 T/CUMM (130-400); Potassium Heart/CVR 3.8 MMOL/L (3.5-5.1); Red Blood Count 2.59 MC/CUMM (3.8-5.5); Red Cell Distribution Width 12.9 % (9.3-17.3); White Blood Count 12.7 T/CUMM (4-12)
[2018-07-19 12:21] LABS: INR 1.1; PT Patient Result 12.1 SECS; Partial Thromboplastin Time 29.4 SECS (0-40)
[2018-07-19] MEDS: SODIUM CHLORIDE 0.45% 1,000 ML IV SCH ×2 (12:21)
[2018-07-19 12:33] LABS: Platelet Estimate Adequate
[2018-07-19 12:34] LABS: Anisocytosis Slight; Macrocytosis Slight
[2018-07-19] MEDS: POTASSIUM CHLORIDE RIDER 20 MEQ in PREMIX 1 EACH IV PRN (13:10)
[2018-07-19] MEDS: INSULIN REGULAR DRIP 100 ML IV PRN ×2 (13:46→21:53)
[2018-07-19] MEDS: POTASSIUM CHLORIDE RIDER 10 MEQ in PREMIX 1 EACH IV PRN (14:21)
[2018-07-19] MEDS ORDERED: CYCLOBENZAPRINE 10 MG TABLET PO SCH (15:00)
[2018-07-19 15:14] LABS: Calcium 8.7 MG/DL (8.5-10.1)
[2018-07-19 15:15] LABS: Blood Urea Nitrogen 22 MG/DL (7-18); Glucose 241 MG/DL (74-106); Osmolality,Calculated 287.5 MOS/KG (273-304)
[2018-07-19] MEDS: INSULIN REGULAR 100 UNIT/ML IV PRN ×2 (16:11→20:09)
[2018-07-19] MEDS: MAGNESIUM SULF RIDER 2 GM in PREMIX 1 EACH IV PRN (16:24)
[2018-07-19] MEDS ORDERED: ASPIRIN 325 MG TABLET PO ONE (16:26)
[2018-07-19] MEDS: MORPHINE 10 MG/1 ML VIAL IV PRN ×3 (16:37→23:56)
[2018-07-19] MEDS: CEFUROXIME INJ 1,500 MG in SYRINGE 1 EACH IV SCH (20:30)
[2018-07-19] MEDS: CHLORHEXIDINE 0.12% ORAL RINSE 60 ML BOTTLE SWISH/SPIT SCH (20:30)
[2018-07-19] MEDS: MIDAZOLAM 2 MG/2 ML VIAL IV PRN (21:45)
[2018-07-20] MEDS: NITROGLYCERIN DRIP 50 MG/250 ML BOTTLE IV SCH ×2 (00:28→03:12)
[2018-07-20] MEDS: SODIUM CHLORIDE 0.45% 1,000 ML IV SCH ×2 (01:07→10:17)
[2018-07-20] MEDS: MIDAZOLAM 2 MG/2 ML VIAL IV PRN (02:22)
[2018-07-20] MEDS: MORPHINE 10 MG/1 ML VIAL IV PRN ×4 (02:41→20:15)
[2018-07-20 03:48] LABS: Basophils % 0.1 % (0.0-0.8); Hematocrit 28.6 VOL% (42.0-52.0); Immature Granulocytes % 0.4 %; Immature Granulocytes Absolute 0.09 #; Lymphocytes # 1.7 10*3/uL (1.4-4.0); Lymphocytes % 8.4 % (21.2-54.2); Mean Corpuscular HGB Conc 31.5 GM/DL (32-36); Mean Platelet Volume 10.8 FL (9.6-12.0); Monocytes % 3.9 % (1.7-12.7); Neutrophils % 87.2 % (38.7-73.9); Platelet Count 113 T/CUMM (130-400); Red Blood Count 2.75 MC/CUMM (3.8-5.5); Red Cell Distribution Width 13.2 % (9.3-17.3); White Blood Count 20.4 T/CUMM (4-12)
[2018-07-20] MEDS: NITROPRUSSIDE 100 MG in DEXTROSE 5% 246 ML IV PRN ×3 (03:59→21:00)
[2018-07-20 04:02] LABS: Calcium 8.2 MG/DL (8.5-10.1); Osmolality,Calculated 285.1 MOS/KG (273-304)
[2018-07-20 04:28] LABS: Anisocytosis Slight; Lymphocytes 8 % (20-55); Segmented Neutrophils 92 % (50-85); Total Cells Counted 100
[2018-07-20 04:29] LABS: Macrocytosis Slight
[2018-07-20 04:30] LABS: Platelet Estimate Normal; Polychromasia Few
[2018-07-20 05:02] LABS: ABG Base Excess -0.1 MMOL/L (-2.5-2.5); ABG HCO3 25.1 MMOL/L (20-26); ABG Oxygen Saturation 94.3 % (95-100); ABG PCO2 43.3 MM HG (35-48); ABG PH 7.381 (7.35-7.45); ABG TCO2 26.4 MMOL/L (23-27); Glucose Heart Surgery 89 MG/DL (74-106); Hemoglobin Heart Surgery 9.3 G/DL (14.0-18.0)
[2018-07-20] MEDS: POTASSIUM CHLORIDE RIDER 20 MEQ in PREMIX 1 EACH IV PRN (07:08)
[2018-07-20] MEDS: POTASSIUM CHLORIDE RIDER 10 MEQ in PREMIX 1 EACH IV PRN (07:55)
[2018-07-20] MEDS ORDERED: KETOROLAC 15 MG/1 ML VIAL IV ONE ×2 (08:01→17:36)
[2018-07-20] MEDS: PANTOPRAZOLE 40 MG VIAL IV SCH (08:30)
[2018-07-20] MEDS: CEFUROXIME INJ 1,500 MG in SYRINGE 1 EACH IV SCH ×2 (08:39→20:11)
[2018-07-20] MEDS: CHLORHEXIDINE 0.12% ORAL RINSE 60 ML BOTTLE SWISH/SPIT SCH ×2 (08:45→20:35)
[2018-07-20] MEDS: CYANOCOBALAMIN 500 MCG TABLET PO SCH (08:48)
[2018-07-20] MEDS: MAGNESIUM SULF RIDER 2 GM in PREMIX 1 EACH IV PRN (08:59)
[2018-07-20] MEDS ORDERED: FUROSEMIDE 40 MG/4 ML VIAL IV ONE (10:11)
[2018-07-20] MEDS ORDERED: CLOPIDOGREL 75 MG TABLET PO SCH (10:23)
[2018-07-20] MEDS: ATORVASTATIN 40 MG TABLET PO SCH ×2 (11:01→20:13)
[2018-07-20] MEDS: FUROSEMIDE 40 MG TABLET PO SCH (11:08)
[2018-07-20] MEDS: CARVEDILOL 3.125 MG TABLET PO SCH ×2 (11:08→16:26)
[2018-07-20] MEDS: ASPIRIN EC 325 MG TABLET PO SCH (11:09)
[2018-07-20] MEDS ORDERED: INSULIN REGULAR 100 UNIT/ML SUBCUT SCH (11:30)
[2018-07-20] MEDS ORDERED: LOSARTAN 25 MG TABLET PO SCH (12:00)
[2018-07-20] MEDS: CLOPIDOGREL 75 MG TABLET PO SCH (12:12)
[2018-07-20] MEDS: INSULIN REGULAR 100 UNIT/ML SUBCUT SCH ×4 (12:19→23:21)
[2018-07-20] MEDS ORDERED: INSULIN GLARGINE 100 UNIT/ML SUBCUT SCH (16:00)
[2018-07-20] MEDS ORDERED: ALBUTEROL 2.5 MG/3 ML NEB RESP TX PRN (17:01)
[2018-07-20] MEDS: MORPHINE 4 MG/1 ML VIAL IV PRN (17:23)
[2018-07-20] MEDS ORDERED: LEVALBUTEROL 1.25 MG/3 ML NEB RESP TX PRN (17:30)
[2018-07-21] MEDS: MORPHINE 10 MG/1 ML VIAL IV PRN ×2 (02:41→08:23)
[2018-07-21] MEDS: NITROGLYCERIN DRIP 50 MG/250 ML BOTTLE IV SCH (02:55)
[2018-07-21 04:00] LABS: Basophils % 0.1 % (0.0-0.8); Hematocrit 24.7 VOL% (42.0-52.0); Hemoglobin 7.7 GM/DL (14.0-18.0); Immature Granulocytes % 0.9 %; Lymphocytes # 1.8 10*3/uL (1.4-4.0); Lymphocytes % 7.8 % (21.2-54.2); Mean Corpuscular HGB Conc 31.2 GM/DL (32-36); Mean Corpuscular Volume 107.9 FL (87-102); Mean Platelet Volume 10.8 FL (9.6-12.0); Monocytes % 6.8 % (1.7-12.7); Neutrophils % 84.4 % (38.7-73.9); Platelet Count 109 T/CUMM (130-400); Red Blood Count 2.29 MC/CUMM (3.8-5.5); Red Cell Distribution Width 13.9 % (9.3-17.3); White Blood Count 22.5 T/CUMM (4-12)
[2018-07-21 04:12] LABS: Calcium 7.3 MG/DL (8.5-10.1); Osmolality,Calculated 296.5 MOS/KG (273-304)
[2018-07-21] MEDS: INSULIN REGULAR 100 UNIT/ML SUBCUT SCH ×2 (04:53→08:57)
[2018-07-21 06:02] LABS: Anisocytosis 1+; Band Neutrophils 1 % (0-10); Lymphocytes 9 % (20-55); Platelet Estimate Decreased; Segmented Neutrophils 82 % (50-85); Total Cells Counted 100
[2018-07-21] MEDS: NITROPRUSSIDE 100 MG in DEXTROSE 5% 246 ML IV PRN ×2 (06:05→15:31)
[2018-07-21] MEDS ORDERED: FUROSEMIDE 40 MG/4 ML VIAL IV ONE ×2 (07:56→18:00)
[2018-07-21] MEDS ORDERED: INSULIN GLARGINE 100 UNIT/ML SUBCUT SCH ×2 (09:00→15:08)
[2018-07-21] MEDS ORDERED: LOSARTAN 50 MG TABLET PO SCH (09:00)
[2018-07-21] MEDS: PANTOPRAZOLE 40 MG VIAL IV SCH (09:24)
[2018-07-21] MEDS: CYANOCOBALAMIN 500 MCG TABLET PO SCH (09:28)
[2018-07-21] MEDS: CARVEDILOL 3.125 MG TABLET PO SCH ×2 (09:29→17:30)
[2018-07-21] MEDS: FUROSEMIDE 40 MG TABLET PO SCH (09:29)
[2018-07-21] MEDS: CLOPIDOGREL 75 MG TABLET PO SCH (09:29)
[2018-07-21] MEDS: ASPIRIN EC 325 MG TABLET PO SCH (09:30)
[2018-07-21] MEDS: CHLORHEXIDINE 0.12% ORAL RINSE 60 ML BOTTLE SWISH/SPIT SCH ×2 (09:31→20:47)
[2018-07-21] MEDS: INSULIN GLARGINE 100 UNIT/ML SUBCUT SCH (09:31)
[2018-07-21] MEDS ORDERED: CLOPIDOGREL 75 MG TABLET PO SCH (10:11)
[2018-07-21] MEDS ORDERED: HALOPERIDOL 5 MG/ML AMP IM ONE (10:48)
[2018-07-21] MEDS ORDERED: SODIUM CHLORIDE 0.9% 1,000 ML IV PRN (11:34)
[2018-07-21] MEDS: INSULIN LISPRO 100 UNIT/ML SUBCUT SCH ×3 (12:27→20:24)
[2018-07-21] MEDS: traMADol 50 MG TABLET PO PRN ×2 (15:30→20:47)
[2018-07-21] MEDS: ATORVASTATIN 40 MG TABLET PO SCH (20:48)
[2018-07-22] MEDS: traMADol 50 MG TABLET PO PRN ×2 (00:34→20:30)
[2018-07-22] MEDS: MORPHINE 10 MG/1 ML VIAL IV PRN (02:26)
[2018-07-22 03:41] LABS: Basophils % 0.1 % (0.0-0.8); Hematocrit 28.2 VOL% (42.0-52.0); Hemoglobin 8.9 GM/DL (14.0-18.0); Immature Granulocytes % 0.8 %; Immature Granulocytes Absolute 0.19 #; Lymphocytes # 2.9 10*3/uL (1.4-4.0); Lymphocytes % 12.8 % (21.2-54.2); Mean Corpuscular HGB Conc 31.6 GM/DL (32-36); Mean Corpuscular Volume 104.4 FL (87-102); Mean Platelet Volume 10.9 FL (9.6-12.0); Monocytes % 8.2 % (1.7-12.7); Neutrophils % 78.1 % (38.7-73.9); Platelet Count 131 T/CUMM (130-400); Red Cell Distribution Width 15.4 % (9.3-17.3); White Blood Count 22.6 T/CUMM (4-12)
[2018-07-22 04:07] LABS: Lymphocytes 12 % (20-55); Segmented Neutrophils 80 % (50-85); Total Cells Counted 100
[2018-07-22 04:08] LABS: Anisocytosis Slight; Macrocytosis Slight
[2018-07-22 04:09] LABS: Stomatocytes Slight
[2018-07-22 04:10] LABS: Platelet Estimate Normal; Polychromasia Slight
[2018-07-22 04:33] LABS: Blood Urea Nitrogen 45 MG/DL (7-18); Glucose 136 MG/DL (74-106); Osmolality,Calculated 294.3 MOS/KG (273-304)
[2018-07-22 04:35] LABS: Calcium < 5.0 MG/DL (8.5-10.1)
[2018-07-22] MEDS: NITROGLYCERIN DRIP 50 MG/250 ML BOTTLE IV SCH (04:45)
[2018-07-22] MEDS ORDERED: CALCIUM GLUCONATE 1,000 MG in SODIUM CHLORIDE 0.9% 100 ML IV ONE (04:59)
[2018-07-22] MEDS ORDERED: FUROSEMIDE 40 MG/4 ML VIAL IV ONE (08:03)
[2018-07-22] MEDS: INSULIN LISPRO 100 UNIT/ML SUBCUT SCH ×4 (09:10→20:28)
[2018-07-22] MEDS: CARVEDILOL 3.125 MG TABLET PO SCH ×2 (09:11→17:15)
[2018-07-22] MEDS: ASPIRIN EC 325 MG TABLET PO SCH (09:14)
[2018-07-22] MEDS: LOSARTAN 50 MG TABLET PO SCH ×2 (09:15→20:27)
[2018-07-22] MEDS: ISOSORBIDE MONONITRATE 60 MG TABLET PO SCH (09:15)
[2018-07-22] MEDS: INSULIN GLARGINE 100 UNIT/ML SUBCUT SCH (09:15)
[2018-07-22] MEDS: CYANOCOBALAMIN 500 MCG TABLET PO SCH (09:16)
[2018-07-22] MEDS: CLOPIDOGREL 75 MG TABLET PO SCH (09:16)
[2018-07-22] MEDS: PANTOPRAZOLE 40 MG VIAL IV SCH (09:20)
[2018-07-22] MEDS: CHLORHEXIDINE 0.12% ORAL RINSE 60 ML BOTTLE SWISH/SPIT SCH ×2 (09:20→21:19)
[2018-07-22] MEDS: FUROSEMIDE 40 MG TABLET PO SCH (09:20)
[2018-07-22] MEDS: NITROPRUSSIDE 100 MG in DEXTROSE 5% 246 ML IV PRN (10:11)
[2018-07-22] MEDS ORDERED: NITROPRUSSIDE 100 MG in DEXTROSE 5% 250 ML IV PRN (16:01)
[2018-07-22] MEDS: ATORVASTATIN 40 MG TABLET PO SCH (20:28)
[2018-07-23] MEDS: MORPHINE 4 MG/1 ML VIAL IV PRN (02:30)
[2018-07-23 05:04] LABS: Basophils % 0.1 % (0.0-0.8); Eosinophils # 0.1 10*3/uL (0.0-0.87); Eosinophils % 0.6 % (0.00-10.9); Hematocrit 27.9 VOL% (42.0-52.0); Hemoglobin 8.8 GM/DL (14.0-18.0); Immature Granulocytes % 0.7 %; Immature Granulocytes Absolute 0.12 #; Lymphocytes # 2.5 10*3/uL (1.4-4.0); Lymphocytes % 15.4 % (21.2-54.2); Mean Corpuscular HGB Conc 31.5 GM/DL (32-36); Mean Corpuscular Volume 103.7 FL (87-102); Mean Platelet Volume 10.6 FL (9.6-12.0); Monocytes % 10.7 % (1.7-12.7); Neutrophils % 72.5 % (38.7-73.9); Platelet Count 118 T/CUMM (130-400); Red Blood Count 2.69 MC/CUMM (3.8-5.5); Red Cell Distribution Width 14.7 % (9.3-17.3); White Blood Count 16.3 T/CUMM (4-12)
[2018-07-23 05:27] LABS: Calcium 8.4 MG/DL (8.5-10.1); Osmolality,Calculated 291.1 MOS/KG (273-304)
[2018-07-23] MEDS: traMADol 50 MG TABLET PO PRN (05:51)
[2018-07-23] MEDS: INSULIN LISPRO 100 UNIT/ML SUBCUT SCH ×4 (07:45→22:13)
[2018-07-23] MEDS: CARVEDILOL 6.25 MG TABLET PO SCH ×2 (08:09→17:38)
[2018-07-23] MEDS: CYANOCOBALAMIN 500 MCG TABLET PO SCH (08:57)
[2018-07-23] MEDS: CLOPIDOGREL 75 MG TABLET PO SCH (08:57)
[2018-07-23] MEDS: FUROSEMIDE 40 MG TABLET PO SCH (08:57)
[2018-07-23] MEDS: ISOSORBIDE MONONITRATE 60 MG TABLET PO SCH (08:58)
[2018-07-23] MEDS: CHLORHEXIDINE 0.12% ORAL RINSE 60 ML BOTTLE SWISH/SPIT SCH ×2 (08:58→21:00)
[2018-07-23] MEDS: PANTOPRAZOLE 40 MG VIAL IV SCH (08:58)
[2018-07-23] MEDS: LOSARTAN 50 MG TABLET PO SCH ×2 (08:58→20:59)
[2018-07-23] MEDS: INSULIN GLARGINE 100 UNIT/ML SUBCUT SCH (08:58)
[2018-07-23] MEDS: ASPIRIN EC 325 MG TABLET PO SCH (08:58)
[2018-07-23] MEDS: ATORVASTATIN 40 MG TABLET PO SCH (20:59)
[2018-07-24 04:28] LABS: Basophils % 0.1 % (0.0-0.8); Eosinophils # 0.2 10*3/uL (0.0-0.87); Eosinophils % 1.4 % (0.00-10.9); Hematocrit 26.5 VOL% (42.0-52.0); Hemoglobin 8.1 GM/DL (14.0-18.0); Immature Granulocytes % 0.8 %; Lymphocytes # 2.2 10*3/uL (1.4-4.0); Lymphocytes % 16.9 % (21.2-54.2); Mean Corpuscular HGB Conc 30.6 GM/DL (32-36); Mean Platelet Volume 10.4 FL (9.6-12.0); Monocytes % 10.9 % (1.7-12.7); Neutrophils % 69.9 % (38.7-73.9); Platelet Count 117 T/CUMM (130-400); Red Cell Distribution Width 14.3 % (9.3-17.3); White Blood Count 13.2 T/CUMM (4-12)
[2018-07-24] MEDS: INSULIN LISPRO 100 UNIT/ML SUBCUT SCH ×4 (08:38→22:47)
[2018-07-24] MEDS: LOSARTAN 50 MG TABLET PO SCH ×2 (08:43→22:44)
[2018-07-24] MEDS: ASPIRIN EC 325 MG TABLET PO SCH (08:43)
[2018-07-24] MEDS: FUROSEMIDE 40 MG TABLET PO SCH (08:43)
[2018-07-24] MEDS: INSULIN GLARGINE 100 UNIT/ML SUBCUT SCH (08:44)
[2018-07-24] MEDS: CARVEDILOL 6.25 MG TABLET PO SCH (08:44)
[2018-07-24] MEDS: CLOPIDOGREL 75 MG TABLET PO SCH (08:44)
[2018-07-24] MEDS: PANTOPRAZOLE 40 MG TABLET PO SCH (08:44)
[2018-07-24] MEDS: CYANOCOBALAMIN 500 MCG TABLET PO SCH (08:44)
[2018-07-24] MEDS: CHLORHEXIDINE 0.12% ORAL RINSE 60 ML BOTTLE SWISH/SPIT SCH ×2 (08:47→22:53)
[2018-07-24] MEDS: ISOSORBIDE MONONITRATE 60 MG TABLET PO SCH (08:48)
[2018-07-24] MEDS: CARVEDILOL 12.5 MG TABLET PO SCH (17:24)
[2018-07-24] MEDS: ATORVASTATIN 40 MG TABLET PO SCH (22:44)
[2018-07-25 05:27] LABS: Basophils % 0.1 % (0.0-0.8); Eosinophils # 0.3 10*3/uL (0.0-0.87); Eosinophils % 1.7 % (0.00-10.9); Hemoglobin 8.5 GM/DL (14.0-18.0); Immature Granulocytes Absolute 0.15 #; Lymphocytes # 2.3 10*3/uL (1.4-4.0); Lymphocytes % 15.5 % (21.2-54.2); Mean Corpuscular HGB Conc 30.4 GM/DL (32-36); Mean Corpuscular Volume 106.5 FL (87-102); Mean Platelet Volume 10.1 FL (9.6-12.0); Monocytes % 8.1 % (1.7-12.7); Neutrophils % 73.6 % (38.7-73.9); Platelet Count 140 T/CUMM (130-400); Red Blood Count 2.63 MC/CUMM (3.8-5.5); Red Cell Distribution Width 14.2 % (9.3-17.3); White Blood Count 14.5 T/CUMM (4-12)
[2018-07-25 05:40] LABS: Osmolality,Calculated 291.3 MOS/KG (273-304)
[2018-07-25] MEDS: LOSARTAN 50 MG TABLET PO SCH ×2 (08:28→21:08)
[2018-07-25] MEDS: CYANOCOBALAMIN 500 MCG TABLET PO SCH (08:28)
[2018-07-25] MEDS: INSULIN GLARGINE 100 UNIT/ML SUBCUT SCH (08:28)
[2018-07-25] MEDS: CLOPIDOGREL 75 MG TABLET PO SCH (08:28)
[2018-07-25] MEDS: CARVEDILOL 12.5 MG TABLET PO SCH ×2 (08:28→17:06)
[2018-07-25] MEDS: ISOSORBIDE MONONITRATE 60 MG TABLET PO SCH (08:28)
[2018-07-25] MEDS: PANTOPRAZOLE 40 MG TABLET PO SCH (08:28)
[2018-07-25] MEDS: ASPIRIN EC 325 MG TABLET PO SCH (08:29)
[2018-07-25] MEDS: INSULIN LISPRO 100 UNIT/ML SUBCUT SCH ×4 (08:29→20:20)
[2018-07-25] MEDS: FUROSEMIDE 40 MG TABLET PO SCH (08:29)
[2018-07-25] MEDS: CHLORHEXIDINE 0.12% ORAL RINSE 60 ML BOTTLE SWISH/SPIT SCH ×2 (08:29→21:12)
[2018-07-25] MEDS ORDERED: BISACODYL 5 MG TABLET PO PRN (15:20)
[2018-07-25] MEDS: ATORVASTATIN 40 MG TABLET PO SCH (21:07)
[2018-07-25] MEDS: DOCUSATE SODIUM 100 MG CAPSULE PO SCH (21:08)
[2018-07-26 05:04] LABS: Basophils % 0.1 % (0.0-0.8); Eosinophils # 0.3 10*3/uL (0.0-0.87); Hematocrit 27.6 VOL% (42.0-52.0); Hemoglobin 8.4 GM/DL (14.0-18.0); Immature Granulocytes % 1.7 %; Immature Granulocytes Absolute 0.27 #; Lymphocytes # 2.9 10*3/uL (1.4-4.0); Lymphocytes % 18.4 % (21.2-54.2); Mean Corpuscular HGB Conc 30.4 GM/DL (32-36); Mean Corpuscular Volume 106.2 FL (87-102); Mean Platelet Volume 10.3 FL (9.6-12.0); Monocytes % 6.5 % (1.7-12.7); Neutrophils % 71.3 % (38.7-73.9); Platelet Count 161 T/CUMM (130-400); White Blood Count 15.5 T/CUMM (4-12)
[2018-07-26 05:19] LABS: Calcium 7.7 MG/DL (8.5-10.1); Osmolality,Calculated 288.3 MOS/KG (273-304)
[2018-07-26 08:10] VITALS: BP 116/55
[2018-07-26] MEDS: INSULIN LISPRO 100 UNIT/ML SUBCUT SCH (08:51)
[2018-07-26] MEDS: ISOSORBIDE MONONITRATE 60 MG TABLET PO SCH (09:33)
[2018-07-26] MEDS: CLOPIDOGREL 75 MG TABLET PO SCH (09:33)
[2018-07-26] MEDS: DOCUSATE SODIUM 100 MG CAPSULE PO SCH (09:33)
[2018-07-26] MEDS: CARVEDILOL 12.5 MG TABLET PO SCH (09:33)
[2018-07-26] MEDS: ASPIRIN EC 325 MG TABLET PO SCH (09:33)
[2018-07-26] MEDS: FUROSEMIDE 40 MG TABLET PO SCH (09:34)
[2018-07-26] MEDS: LOSARTAN 50 MG TABLET PO SCH (09:34)
[2018-07-26] MEDS: INSULIN GLARGINE 100 UNIT/ML SUBCUT SCH (09:34)
[2018-07-26] MEDS: CYANOCOBALAMIN 500 MCG TABLET PO SCH (09:34)
[2018-07-26] MEDS: CHLORHEXIDINE 0.12% ORAL RINSE 60 ML BOTTLE SWISH/SPIT SCH (09:35)
[2018-07-26] MEDS: PANTOPRAZOLE 40 MG TABLET PO SCH (09:36)
== END 2018-07-26 11:02 | disposition swing bed (61) | DRG 236 ==
LOC: N.ED 01:34 → N.EDINP 02:43 → N.ICU 03:07 → N.CVR 07:08 → N.ICU 07-20 15:41 → N.TELES 07-23 18:52
PROVIDERS: ADMIT Internal Medicine Cardiovascular Disease; ATTEND Internal Medicine Cardiovascular Disease

== ENCOUNTER 2018-08-09 04:30 | Inpatient (IN) ==
[2018-08-09 05:16] LABS: Basophils % 0.3 % (0.0-0.8); Eosinophils # 0.2 10*3/uL (0.0-0.87); Eosinophils % 1.5 % (0.00-10.9); Hematocrit 32.5 VOL% (42.0-52.0); Hemoglobin 9.8 GM/DL (14.0-18.0); Immature Granulocytes % 0.5 %; Immature Granulocytes Absolute 0.05 #; Lymphocytes # 2.3 10*3/uL (1.4-4.0); Lymphocytes % 23.9 % (21.2-54.2); Mean Corpuscular HGB Conc 30.2 GM/DL (32-36); Mean Corpuscular Volume 102.8 FL (87-102); Mean Platelet Volume 9.5 FL (9.6-12.0); Monocytes % 6.6 % (1.7-12.7); Neutrophils % 67.2 % (38.7-73.9); Platelet Count 282 T/CUMM (130-400); Red Blood Count 3.16 MC/CUMM (3.8-5.5); Red Cell Distribution Width 13.9 % (9.3-17.3); White Blood Count 9.8 T/CUMM (4-12)
[2018-08-09 05:21] LABS: PT Patient Result 11.2 SECS
[2018-08-09] MEDS ORDERED: DEXTROSE 50% 25 GM/50 ML VIAL IV PRN ×2 (05:33→08:21)
[2018-08-09] MEDS ORDERED: GLUCAGON 1 MG VIAL IM PRN ×2 (05:33→08:21)
[2018-08-09] MEDS ORDERED: MAGNESIUM SULF RIDER 4 GM in PREMIX 1 EACH IV PRN (05:33)
[2018-08-09] MEDS ORDERED: MAGNESIUM SULF RIDER 2 GM in PREMIX 1 EACH IV PRN (05:33)
[2018-08-09 05:54] LABS: Albumin 2.9 G/DL (3.4-5.0); Bilirubin,Total 0.6 MG/DL (0.2-1.0); Calcium 8.4 MG/DL (8.5-10.1); Osmolality,Calculated 277.5 MOS/KG (273-304); Total Protein 7.7 G/DL (6.4-8.3)
[2018-08-09] MEDS ORDERED: RIVAROXABAN 15 MG TABLET PO ONE (07:03)
[2018-08-09] MEDS ORDERED: ACETAMINOPHEN 325 MG TABLET PO PRN (08:24)
[2018-08-09] MEDS ORDERED: ALBUTEROL 2.5 MG/3 ML NEB RESP TX PRN (08:30)
[2018-08-09] MEDS ORDERED: CYCLOBENZAPRINE 10 MG TABLET PO PRN (08:30)
[2018-08-09] MEDS ORDERED: ENOXAPARIN 30 MG/0.3 ML SYRINGE SUBCUT SCH (08:30)
[2018-08-09] MEDS ORDERED: FUROSEMIDE 40 MG/4 ML VIAL IV ONE (08:41)
[2018-08-09] MEDS: ISOSORBIDE MONONITRATE 60 MG TABLET PO SCH (09:16)
[2018-08-09] MEDS: CLOPIDOGREL 75 MG TABLET PO SCH (09:16)
[2018-08-09] MEDS: PANTOPRAZOLE 40 MG TABLET PO SCH (09:16)
[2018-08-09] MEDS: CYANOCOBALAMIN 500 MCG TABLET PO SCH (09:16)
[2018-08-09] MEDS: ASPIRIN EC 325 MG TABLET PO SCH (09:17)
[2018-08-09] MEDS: LOSARTAN 50 MG TABLET PO SCH ×2 (09:19→20:36)
[2018-08-09] MEDS: INSULIN GLARGINE 100 UNIT/ML SUBCUT SCH (09:19)
[2018-08-09] MEDS: INSULIN REGULAR 100 UNIT/ML SUBCUT SCH ×4 (09:19→20:36)
[2018-08-09] MEDS ORDERED: INSULIN REGULAR 100 UNIT/ML SUBCUT SCH (11:30)
[2018-08-09] MEDS: CARVEDILOL 12.5 MG TABLET PO SCH (16:22)
[2018-08-09] MEDS: FUROSEMIDE 40 MG/4 ML VIAL IV SCH (16:22)
[2018-08-09] MEDS: ALBUTEROL/IPRATROPIUM 3 ML NEB RESP TX SCH (19:58)
[2018-08-09] MEDS: ATORVASTATIN 40 MG TABLET PO SCH (20:36)
[2018-08-10] MEDS: ALBUTEROL/IPRATROPIUM 3 ML NEB RESP TX SCH ×4 (00:12→19:10)
[2018-08-10 05:42] LABS: Basophils % 0.2 % (0.0-0.8); Eosinophils # 0.2 10*3/uL (0.0-0.87); Eosinophils % 2.3 % (0.00-10.9); Hematocrit 30.1 VOL% (42.0-52.0); Hemoglobin 9.2 GM/DL (14.0-18.0); Immature Granulocytes % 0.3 %; Immature Granulocytes Absolute 0.03 #; Lymphocytes # 2.3 10*3/uL (1.4-4.0); Lymphocytes % 24.2 % (21.2-54.2); Mean Corpuscular HGB Conc 30.6 GM/DL (32-36); Mean Corpuscular Volume 103.1 FL (87-102); Mean Platelet Volume 9.4 FL (9.6-12.0); Monocytes % 7.5 % (1.7-12.7); Neutrophils % 65.5 % (38.7-73.9); Platelet Count 213 T/CUMM (130-400); Red Blood Count 2.92 MC/CUMM (3.8-5.5); Red Cell Distribution Width 14.2 % (9.3-17.3); White Blood Count 9.3 T/CUMM (4-12)
[2018-08-10 06:15] LABS: Calcium 8.5 MG/DL (8.5-10.1); Osmolality,Calculated 280.5 MOS/KG (273-304)
[2018-08-10] MEDS ORDERED: cefTRIAXone 1,000 MG in SYRINGE 1 EACH IV SCH (08:00)
[2018-08-10] MEDS: INSULIN GLARGINE 100 UNIT/ML SUBCUT SCH (09:55)
[2018-08-10] MEDS: ENOXAPARIN 40 MG/0.4 ML SYRINGE SUBCUT SCH (09:55)
[2018-08-10] MEDS: INSULIN REGULAR 100 UNIT/ML SUBCUT SCH ×4 (09:55→21:18)
[2018-08-10] MEDS: ISOSORBIDE MONONITRATE 60 MG TABLET PO SCH (09:56)
[2018-08-10] MEDS: CLOPIDOGREL 75 MG TABLET PO SCH (09:56)
[2018-08-10] MEDS: FUROSEMIDE 40 MG/4 ML VIAL IV SCH ×2 (09:56→15:59)
[2018-08-10] MEDS: ASPIRIN EC 325 MG TABLET PO SCH (09:56)
[2018-08-10] MEDS: LOSARTAN 50 MG TABLET PO SCH ×2 (09:56→21:18)
[2018-08-10] MEDS: PANTOPRAZOLE 40 MG TABLET PO SCH (09:56)
[2018-08-10] MEDS: CYANOCOBALAMIN 500 MCG TABLET PO SCH (09:56)
[2018-08-10] MEDS: CARVEDILOL 12.5 MG TABLET PO SCH ×2 (09:56→15:59)
[2018-08-10] MEDS ORDERED: metOLazone 5 MG TABLET PO ONE (11:00)
[2018-08-10] MEDS: ATORVASTATIN 40 MG TABLET PO SCH (21:18)
[2018-08-11 06:40] LABS: Basophils % 0.3 % (0.0-0.8); Eosinophils # 0.3 10*3/uL (0.0-0.87); Eosinophils % 3.2 % (0.00-10.9); Hematocrit 32.2 VOL% (42.0-52.0); Hemoglobin 9.5 GM/DL (14.0-18.0); Immature Granulocytes % 0.3 %; Immature Granulocytes Absolute 0.03 #; Lymphocytes # 2.3 10*3/uL (1.4-4.0); Lymphocytes % 26.1 % (21.2-54.2); Mean Corpuscular HGB Conc 29.5 GM/DL (32-36); Mean Corpuscular Volume 104.9 FL (87-102); Mean Platelet Volume 9.2 FL (9.6-12.0); Monocytes % 8.7 % (1.7-12.7); Neutrophils % 61.4 % (38.7-73.9); Platelet Count 200 T/CUMM (130-400); Red Blood Count 3.07 MC/CUMM (3.8-5.5); Red Cell Distribution Width 14.4 % (9.3-17.3); White Blood Count 8.7 T/CUMM (4-12)
[2018-08-11 06:59] LABS: Calcium 8.7 MG/DL (8.5-10.1); Osmolality,Calculated 282.4 MOS/KG (273-304)
[2018-08-11] MEDS: ALBUTEROL/IPRATROPIUM 3 ML NEB RESP TX SCH ×4 (07:04→19:38)
[2018-08-11] MEDS: INSULIN REGULAR 100 UNIT/ML SUBCUT SCH ×4 (08:00→20:31)
[2018-08-11] MEDS: INSULIN GLARGINE 100 UNIT/ML SUBCUT SCH (10:10)
[2018-08-11] MEDS: LOSARTAN 50 MG TABLET PO SCH ×2 (10:11→20:30)
[2018-08-11] MEDS: ISOSORBIDE MONONITRATE 60 MG TABLET PO SCH (10:11)
[2018-08-11] MEDS: ASPIRIN EC 325 MG TABLET PO SCH (10:11)
[2018-08-11] MEDS: ENOXAPARIN 40 MG/0.4 ML SYRINGE SUBCUT SCH (10:11)
[2018-08-11] MEDS: CYANOCOBALAMIN 500 MCG TABLET PO SCH (10:12)
[2018-08-11] MEDS: FUROSEMIDE 40 MG/4 ML VIAL IV SCH ×2 (10:13→16:55)
[2018-08-11] MEDS: CLOPIDOGREL 75 MG TABLET PO SCH (10:14)
[2018-08-11] MEDS: metOLazone 5 MG TABLET PO SCH (10:19)
[2018-08-11] MEDS: CARVEDILOL 12.5 MG TABLET PO SCH ×2 (12:14→16:55)
[2018-08-11] MEDS: PANTOPRAZOLE 40 MG TABLET PO SCH (12:14)
[2018-08-11] MEDS: ATORVASTATIN 40 MG TABLET PO SCH (20:30)
[2018-08-12] MEDS: ALBUTEROL/IPRATROPIUM 3 ML NEB RESP TX SCH ×4 (01:59→20:24)
[2018-08-12 05:15] LABS: Calcium 8.2 MG/DL (8.5-10.1); Osmolality,Calculated 280.5 MOS/KG (273-304)
[2018-08-12] MEDS: INSULIN REGULAR 100 UNIT/ML SUBCUT SCH ×4 (08:03→21:31)
[2018-08-12] MEDS: INSULIN GLARGINE 100 UNIT/ML SUBCUT SCH (08:35)
[2018-08-12] MEDS: ISOSORBIDE MONONITRATE 60 MG TABLET PO SCH (08:36)
[2018-08-12] MEDS: PANTOPRAZOLE 40 MG TABLET PO SCH (08:36)
[2018-08-12] MEDS: CARVEDILOL 12.5 MG TABLET PO SCH ×2 (08:36→16:16)
[2018-08-12] MEDS: CLOPIDOGREL 75 MG TABLET PO SCH (08:36)
[2018-08-12] MEDS: ASPIRIN EC 325 MG TABLET PO SCH (08:36)
[2018-08-12] MEDS: CYANOCOBALAMIN 500 MCG TABLET PO SCH (08:36)
[2018-08-12] MEDS: metOLazone 5 MG TABLET PO SCH (08:36)
[2018-08-12] MEDS: FUROSEMIDE 40 MG/4 ML VIAL IV SCH ×2 (08:37→16:16)
[2018-08-12] MEDS: LOSARTAN 50 MG TABLET PO SCH ×2 (08:37→21:32)
[2018-08-12] MEDS: ENOXAPARIN 40 MG/0.4 ML SYRINGE SUBCUT SCH (08:37)
[2018-08-12] MEDS: ATORVASTATIN 40 MG TABLET PO SCH (21:32)
[2018-08-13] MEDS: ALBUTEROL/IPRATROPIUM 3 ML NEB RESP TX SCH ×3 (01:28→13:00)
[2018-08-13 04:44] LABS: Basophils % 0.4 % (0.0-0.8); Eosinophils # 0.3 10*3/uL (0.0-0.87); Eosinophils % 3.9 % (0.00-10.9); Hematocrit 30.3 VOL% (42.0-52.0); Hemoglobin 9.3 GM/DL (14.0-18.0); Immature Granulocytes % 0.2 %; Immature Granulocytes Absolute 0.02 #; Lymphocytes # 2.6 10*3/uL (1.4-4.0); Lymphocytes % 31.1 % (21.2-54.2); Mean Corpuscular HGB Conc 30.7 GM/DL (32-36); Mean Corpuscular Volume 102.4 FL (87-102); Monocytes % 8.7 % (1.7-12.7); Neutrophils % 55.7 % (38.7-73.9); Platelet Count 191 T/CUMM (130-400); Red Blood Count 2.96 MC/CUMM (3.8-5.5); White Blood Count 8.4 T/CUMM (4-12)
[2018-08-13 04:46] LABS: Calcium 8.5 MG/DL (8.5-10.1); Osmolality,Calculated 278.8 MOS/KG (273-304)
[2018-08-13] MEDS: INSULIN REGULAR 100 UNIT/ML SUBCUT SCH ×2 (08:16→11:46)
[2018-08-13] MEDS: ISOSORBIDE MONONITRATE 60 MG TABLET PO SCH (08:59)
[2018-08-13] MEDS: LOSARTAN 50 MG TABLET PO SCH (08:59)
[2018-08-13] MEDS: ASPIRIN EC 325 MG TABLET PO SCH (08:59)
[2018-08-13] MEDS: PANTOPRAZOLE 40 MG TABLET PO SCH (08:59)
[2018-08-13] MEDS: CARVEDILOL 12.5 MG TABLET PO SCH (08:59)
[2018-08-13] MEDS: metOLazone 5 MG TABLET PO SCH (08:59)
[2018-08-13] MEDS: CYANOCOBALAMIN 500 MCG TABLET PO SCH (08:59)
[2018-08-13] MEDS: INSULIN GLARGINE 100 UNIT/ML SUBCUT SCH (09:00)
[2018-08-13] MEDS: FUROSEMIDE 40 MG/4 ML VIAL IV SCH (09:00)
[2018-08-13] MEDS: ENOXAPARIN 40 MG/0.4 ML SYRINGE SUBCUT SCH (09:00)
[2018-08-13] MEDS: CLOPIDOGREL 75 MG TABLET PO SCH (09:00)
[2018-08-13 11:47] VITALS: BP 107/50
== END 2018-08-13 13:30 | disposition home health service (06) | DRG 291 ==
LOC: N.EDINP 04:30 → N.ED 04:30 → SUATTDRO 05:33 → N.TELES 07:03 → SUATTDRO 08:24
PROVIDERS: ADMIT Thoracic Surgery (Cardiothoracic Vascular Surgery); ATTEND Internal Medicine

== ENCOUNTER 2018-08-15 04:47 | Observation (INO) ==
[2018-08-15] MEDS ORDERED: ASPIRIN 325 MG TABLET PO STA (05:05)
[2018-08-15 05:33] LABS: Basophils % 0.5 % (0.0-0.8); Eosinophils # 0.4 10*3/uL (0.0-0.87); Eosinophils % 4.7 % (0.00-10.9); Hemoglobin 10.6 GM/DL (14.0-18.0); Immature Granulocytes % 0.6 %; Immature Granulocytes Absolute 0.05 #; Lymphocytes # 2.4 10*3/uL (1.4-4.0); Lymphocytes % 27.9 % (21.2-54.2); Mean Corpuscular HGB Conc 31.2 GM/DL (32-36); Mean Corpuscular Volume 101.2 FL (87-102); Mean Platelet Volume 10.1 FL (9.6-12.0); Monocytes % 10.5 % (1.7-12.7); Neutrophils % 55.8 % (38.7-73.9); Platelet Count 194 T/CUMM (130-400); Red Blood Count 3.36 MC/CUMM (3.8-5.5); Red Cell Distribution Width 14.1 % (9.3-17.3); White Blood Count 8.7 T/CUMM (4-12)
[2018-08-15 05:42] LABS: Bilirubin,Total 0.9 MG/DL (0.2-1.0); Calcium 8.8 MG/DL (8.5-10.1); Total Protein 7.6 G/DL (6.4-8.3)
[2018-08-15] MEDS ORDERED: HYDROmorphone 2 MG/1 ML VIAL IV STA (05:56)
[2018-08-15] MEDS ORDERED: POTASSIUM CHLORIDE 20 MEQ TABLET PO PRN (06:01)
[2018-08-15] MEDS ORDERED: MORPHINE 4 MG/1 ML VIAL IV PRN (06:01)
[2018-08-15 06:23] LABS: Risk Ratio 3.29; VLDL CHOLESTEROL 18.4 MG/DL
[2018-08-15] MEDS ORDERED: ENOXAPARIN 40 MG/0.4 ML SYRINGE SUBCUT SCH (06:30)
[2018-08-15] MEDS ORDERED: NITROGLYCERIN SL 0.4 MG TABLET SL PRN (10:31)
[2018-08-15] MEDS ORDERED: LEVALBUTEROL 1.25 MG/3 ML NEB RESP TX PRN (10:31)
[2018-08-15] MEDS ORDERED: ALBUTEROL/IPRATROPIUM 3 ML NEB RESP TX PRN (10:31)
[2018-08-15] MEDS ORDERED: LOSARTAN 50 MG TABLET PO SCH (11:00)
[2018-08-15] MEDS ORDERED: PANTOPRAZOLE 40 MG TABLET PO SCH (11:00)
[2018-08-15] MEDS ORDERED: FUROSEMIDE 40 MG TABLET PO SCH (11:00)
[2018-08-15] MEDS ORDERED: CLOPIDOGREL 75 MG TABLET PO SCH (11:00)
[2018-08-15] MEDS ORDERED: ISOSORBIDE MONONITRATE 60 MG TABLET PO SCH (11:00)
[2018-08-15] MEDS ORDERED: POTASSIUM CHLORIDE 20 MEQ TABLET PO SCH (11:00)
[2018-08-15 12:11] VITALS: BP 111/65
[2018-08-15] MEDS ORDERED: CARVEDILOL 12.5 MG TABLET PO SCH (17:00)
[2018-08-15] MEDS ORDERED: ATORVASTATIN 40 MG TABLET PO SCH (21:00)
[2018-08-15] MEDS ORDERED: SERTRALINE 25 MG TABLET PO SCH (21:00)
== END 2018-08-15 15:44 | disposition home health service (06) ==
LOC: N.ED 04:47 → N.EDINP 04:47 → N.TELEN 08:31
PROVIDERS: ADMIT Internal Medicine; ATTEND Internal Medicine

== ENCOUNTER 2018-09-30 06:25 | Observation (INO) ==
[2018-09-30] MEDS ORDERED: ASPIRIN 325 MG TABLET PO STA (10:49)
[2018-09-30 10:56] LABS: Basophils % 0.4 % (0.0-0.8); Eosinophils # 0.2 10*3/uL (0.0-0.87); Hematocrit 35.2 VOL% (42.0-52.0); Hemoglobin 10.8 GM/DL (14.0-18.0); Immature Granulocytes % 0.4 %; Immature Granulocytes Absolute 0.03 #; Lymphocytes # 2.4 10*3/uL (1.4-4.0); Lymphocytes % 27.6 % (21.2-54.2); Mean Corpuscular HGB Conc 30.7 GM/DL (32-36); Mean Corpuscular Volume 97.5 FL (87-102); Monocytes % 7.9 % (1.7-12.7); Neutrophils % 61.7 % (38.7-73.9); Platelet Count 162 T/CUMM (130-400); Red Blood Count 3.61 MC/CUMM (3.8-5.5); Red Cell Distribution Width 14.4 % (9.3-17.3); White Blood Count 8.5 T/CUMM (4-12)
[2018-09-30 11:04] LABS: INR 1.1; PT Patient Result 11.9 SECS; Partial Thromboplastin Time 32.7 SECS (0-40)
[2018-09-30 11:08] LABS: Albumin 2.8 G/DL (3.4-5.0); Bilirubin,Total 0.8 MG/DL (0.2-1.0); Calcium 8.5 MG/DL (8.5-10.1); Osmolality,Calculated 283.4 MOS/KG (273-304); Total Protein 7.7 G/DL (6.4-8.3)
[2018-09-30] MEDS ORDERED: NITROGLYCERIN SL 0.4 MG TABLET SL PRN (12:51)
[2018-09-30] MEDS ORDERED: DEXTROSE 10% 25 GM/250 ML BAG IV PRN (12:52)
[2018-09-30] MEDS ORDERED: DEXTROSE 50% 25 GM/50 ML VIAL IV PRN (12:52)
[2018-09-30] MEDS ORDERED: GLUCAGON 1 MG VIAL IM PRN (12:52)
[2018-09-30] MEDS: FUROSEMIDE 40 MG/4 ML VIAL IV SCH (14:31)
[2018-09-30] MEDS ORDERED: hydrALAZINE 20 MG/1 ML VIAL IV PRN (16:04)
[2018-09-30] MEDS: INSULIN LISPRO 100 UNIT/ML SUBCUT SCH ×2 (16:36→22:33)
[2018-09-30] MEDS: CARVEDILOL 12.5 MG TABLET PO SCH (17:23)
[2018-09-30] MEDS: INSULIN NPH/REGULAR 70/30 100 UNIT/ML SUBCUT SCH (17:24)
[2018-09-30 19:43] LABS: Troponin I < 0.015 NG/ML (0.00-0.045)
[2018-09-30] MEDS: LOSARTAN 50 MG TABLET PO SCH (22:37)
[2018-09-30] MEDS: RIVAROXABAN 2.5 MG TABLET PO SCH (22:38)
[2018-10-01 04:46] LABS: Basophils % 0.3 % (0.0-0.8); Eosinophils # 0.2 10*3/uL (0.0-0.87); Eosinophils % 1.7 % (0.00-10.9); Hematocrit 37.1 VOL% (42.0-52.0); Hemoglobin 11.2 GM/DL (14.0-18.0); Immature Granulocytes % 0.5 %; Immature Granulocytes Absolute 0.05 #; Lymphocytes # 2.6 10*3/uL (1.4-4.0); Lymphocytes % 27.9 % (21.2-54.2); Mean Corpuscular HGB Conc 30.2 GM/DL (32-36); Mean Corpuscular Volume 96.9 FL (87-102); Mean Platelet Volume 10.3 FL (9.6-12.0); Monocytes % 8.2 % (1.7-12.7); Neutrophils % 61.4 % (38.7-73.9); Platelet Count 171 T/CUMM (130-400); Red Blood Count 3.83 MC/CUMM (3.8-5.5); Red Cell Distribution Width 14.4 % (9.3-17.3); White Blood Count 9.2 T/CUMM (4-12)
[2018-10-01 05:12] LABS: Calcium 8.8 MG/DL (8.5-10.1); Osmolality,Calculated 282.3 MOS/KG (273-304)
[2018-10-01] MEDS ORDERED: PANTOPRAZOLE 40 MG TABLET PO SCH (07:30)
[2018-10-01] MEDS ORDERED: POTASSIUM CHLORIDE RIDER 10 MEQ in PREMIX 1 EACH IV PRN (08:07)
[2018-10-01] MEDS ORDERED: MAGNESIUM SULF RIDER 4 GM in PREMIX 1 EACH IV PRN (08:07)
[2018-10-01] MEDS ORDERED: MAGNESIUM SULF RIDER 2 GM in PREMIX 1 EACH IV PRN (08:07)
[2018-10-01] MEDS ORDERED: ASPIRIN EC 81 MG TABLET PO SCH (09:00)
[2018-10-01] MEDS: INSULIN LISPRO 100 UNIT/ML SUBCUT SCH ×4 (09:32→22:54)
[2018-10-01] MEDS: ROSUVASTATIN 20 MG TABLET PO SCH (09:43)
[2018-10-01] MEDS: CARVEDILOL 12.5 MG TABLET PO SCH (09:43)
[2018-10-01] MEDS: POTASSIUM CHLORIDE 20 MEQ TABLET PO SCH (09:43)
[2018-10-01] MEDS: LOSARTAN 50 MG TABLET PO SCH ×2 (09:43→22:51)
[2018-10-01] MEDS: CYANOCOBALAMIN 500 MCG TABLET PO SCH (09:43)
[2018-10-01] MEDS: ISOSORBIDE MONONITRATE 60 MG TABLET PO SCH (09:44)
[2018-10-01] MEDS: FUROSEMIDE 40 MG/4 ML VIAL IV SCH (09:44)
[2018-10-01] MEDS: INSULIN NPH/REGULAR 70/30 100 UNIT/ML SUBCUT SCH ×2 (09:49→17:44)
[2018-10-01] MEDS: RIVAROXABAN 2.5 MG TABLET PO SCH (11:52)
[2018-10-01] MEDS: DOXYCYCLINE HYCLATE INJ 100 MG in SODIUM CHLORIDE 0.9% 100 ML IV SCH (17:43)
[2018-10-01] MEDS: CARVEDILOL 25 MG TABLET PO SCH (17:44)
[2018-10-01] MEDS: PANTOPRAZOLE 40 MG TABLET PO SCH (22:51)
[2018-10-02] MEDS: DOXYCYCLINE HYCLATE INJ 100 MG in SODIUM CHLORIDE 0.9% 100 ML IV SCH (03:55)
[2018-10-02 05:06] LABS: Basophils % 0.2 % (0.0-0.8); Eosinophils # 0.2 10*3/uL (0.0-0.87); Eosinophils % 2.1 % (0.00-10.9); Hematocrit 35.5 VOL% (42.0-52.0); Hemoglobin 10.6 GM/DL (14.0-18.0); Immature Granulocytes % 0.5 %; Immature Granulocytes Absolute 0.04 #; Lymphocytes # 3.1 10*3/uL (1.4-4.0); Lymphocytes % 34.9 % (21.2-54.2); Mean Corpuscular HGB Conc 29.9 GM/DL (32-36); Mean Corpuscular Volume 98.3 FL (87-102); Mean Platelet Volume 9.8 FL (9.6-12.0); Monocytes % 7.4 % (1.7-12.7); Neutrophils % 54.9 % (38.7-73.9); Platelet Count 165 T/CUMM (130-400); Red Blood Count 3.61 MC/CUMM (3.8-5.5); Red Cell Distribution Width 14.6 % (9.3-17.3); White Blood Count 8.9 T/CUMM (4-12)
[2018-10-02 05:38] LABS: Calcium 8.3 MG/DL (8.5-10.1); Osmolality,Calculated 282.1 MOS/KG (273-304)
[2018-10-02] MEDS: INSULIN LISPRO 100 UNIT/ML SUBCUT SCH ×2 (08:37→11:49)
[2018-10-02] MEDS: POTASSIUM CHLORIDE 20 MEQ TABLET PO SCH (09:48)
[2018-10-02] MEDS: ISOSORBIDE MONONITRATE 60 MG TABLET PO SCH (09:48)
[2018-10-02] MEDS: LOSARTAN 50 MG TABLET PO SCH (09:50)
[2018-10-02] MEDS: ROSUVASTATIN 20 MG TABLET PO SCH (09:50)
[2018-10-02] MEDS: CARVEDILOL 25 MG TABLET PO SCH (09:50)
[2018-10-02] MEDS: PANTOPRAZOLE 40 MG TABLET PO SCH (09:50)
[2018-10-02] MEDS: CYANOCOBALAMIN 500 MCG TABLET PO SCH (09:50)
[2018-10-02] MEDS: FUROSEMIDE 40 MG/4 ML VIAL IV SCH (09:51)
[2018-10-02] MEDS: INSULIN NPH/REGULAR 70/30 100 UNIT/ML SUBCUT SCH (09:56)
[2018-10-02 12:07] VITALS: BP 119/67
[2018-10-03] MEDS ORDERED: FUROSEMIDE 40 MG TABLET PO SCH (09:00)
== END 2018-10-02 12:30 | disposition home or self-care (01) ==
LOC: N.EDINP 06:25 → N.ED 06:25 → N.2E 14:29
PROVIDERS: ADMIT Internal Medicine; ATTEND Internal Medicine

== ENCOUNTER 2018-11-23 02:38 | Inpatient (IN) ==
[2018-11-23] MEDS ORDERED: SODIUM CHLORIDE 0.9% 1,000 ML IV STA (04:45)
[2018-11-23] MEDS ORDERED: ONDANSETRON 4 MG/2 ML VIAL IV STA (04:45)
[2018-11-23 04:59] LABS: Basophils % 0.2 % (0.0-0.8); Eosinophils % 0.4 % (0.00-10.9); Hematocrit 43.9 VOL% (42.0-52.0); Hemoglobin 13.8 GM/DL (14.0-18.0); Immature Granulocytes % 0.8 %; Immature Granulocytes Absolute 0.09 #; Lymphocytes # 0.7 10*3/uL (1.4-4.0); Lymphocytes % 6.3 % (21.2-54.2); Mean Corpuscular HGB Conc 31.4 GM/DL (32-36); Mean Corpuscular Volume 96.5 FL (87-102); Mean Platelet Volume 10.6 FL (9.6-12.0); Monocytes % 3.8 % (1.7-12.7); Neutrophils % 88.5 % (38.7-73.9); Platelet Count 161 T/CUMM (130-400); Red Blood Count 4.55 MC/CUMM (3.8-5.5); Red Cell Distribution Width 14.6 % (9.3-17.3); White Blood Count 11.3 T/CUMM (4-12)
[2018-11-23 05:19] LABS: Albumin 3.3 G/DL (3.4-5.0); Bilirubin,Total 1.2 MG/DL (0.2-1.0); Calcium 8.7 MG/DL (8.5-10.1); Osmolality,Calculated 284.4 MOS/KG (273-304); Total Protein 8.4 G/DL (6.4-8.3)
[2018-11-23] MEDS ORDERED: hydrALAZINE 20 MG/1 ML VIAL IV STA (05:30)
[2018-11-23] MEDS ORDERED: ONDANSETRON 4 MG/2 ML VIAL IV PRN (09:08)
[2018-11-23] MEDS ORDERED: ACETAMINOPHEN 325 MG TABLET PO PRN (09:08)
[2018-11-23] MEDS ORDERED: NITROGLYCERIN SL 0.4 MG TABLET SL PRN (09:10)
[2018-11-23 09:29] LABS: Risk Ratio 2.31; VLDL CHOLESTEROL 11.4 MG/DL
[2018-11-23] MEDS ORDERED: ISOSORBIDE MONONITRATE 60 MG TABLET PO SCH (09:30)
[2018-11-23] MEDS: POTASSIUM CHLORIDE 20 MEQ TABLET PO SCH (09:47)
[2018-11-23] MEDS: SODIUM CHLORIDE 0.9% 1,000 ML IV SCH ×2 (09:47→20:23)
[2018-11-23] MEDS: FUROSEMIDE 40 MG TABLET PO SCH (09:47)
[2018-11-23 11:22] LABS: Troponin I 0.077 NG/ML (0.00-0.045)
[2018-11-23] MEDS: ROSUVASTATIN 20 MG TABLET PO SCH (11:44)
[2018-11-23] MEDS: VALSARTAN 160 MG TABLET PO SCH (11:45)
[2018-11-23] MEDS: LOSARTAN 50 MG TABLET PO SCH ×2 (11:45→20:23)
[2018-11-23] MEDS: ASPIRIN EC 81 MG TABLET PO SCH (11:45)
[2018-11-23] MEDS: RIVAROXABAN 2.5 MG TABLET PO SCH ×2 (12:55→20:18)
[2018-11-23 14:02] LABS: Troponin I 0.088 NG/ML (0.00-0.045)
[2018-11-23] MEDS: carvediloL 25 MG TABLET PO SCH (17:08)
[2018-11-23] MEDS ORDERED: MORPHINE 4 MG/1 ML VIAL IV PRN (17:51)
[2018-11-23] MEDS ORDERED: ISOSORBIDE MONONITRATE 60 MG TABLET PO ONE (17:52)
[2018-11-23 20:44] LABS: Troponin I 0.064 NG/ML (0.00-0.045)
[2018-11-24 05:30] LABS: Basophils % 0.2 % (0.0-0.8); Eosinophils % 0.5 % (0.00-10.9); Hematocrit 36.4 VOL% (42.0-52.0); Hemoglobin 11.1 GM/DL (14.0-18.0); Immature Granulocytes % 0.6 %; Immature Granulocytes Absolute 0.04 #; Lymphocytes # 1.2 10*3/uL (1.4-4.0); Lymphocytes % 18.5 % (21.2-54.2); Mean Corpuscular HGB Conc 30.5 GM/DL (32-36); Mean Corpuscular Volume 98.4 FL (87-102); Mean Platelet Volume 10.2 FL (9.6-12.0); Monocytes % 7.5 % (1.7-12.7); Neutrophils % 72.7 % (38.7-73.9); Platelet Count 123 T/CUMM (130-400); Red Cell Distribution Width 15.1 % (9.3-17.3); White Blood Count 6.4 T/CUMM (4-12)
[2018-11-24 05:54] LABS: Albumin 2.3 G/DL (3.4-5.0); Bilirubin,Total 1.1 MG/DL (0.2-1.0); Osmolality,Calculated 280.4 MOS/KG (273-304); Thyroid Stimulating Hormone 1.87 uIU/ml (0.358-3.74); Total Protein 6.2 G/DL (6.4-8.3)
[2018-11-24 06:11] LABS: Apearance,Urine CLEAR (Clear); Bilirubin,Urine Negative (Negative); Blood, Urine Moderate mg/dL (Negative); Glucose,Urine (UA) Negative (Negative); Ketones,Urine Negative (Negative); Mucus,Urine Moderate /LPF (Occasional); Nitrite,Urine Negative (Negative); Protein,Urine 30 MG/DL; RBC,Urine 9 /HPF (0-4); Squamous Epithelial Cell,Urine Occasional /HPF (0-10); Urine Color Amber (Yellow); Urine Specific Gravity 1.027 (1.001-1.035); WBC,Urine <1 /HPF (0-6)
[2018-11-24] MEDS: ASPIRIN EC 81 MG TABLET PO SCH (08:27)
[2018-11-24] MEDS: ROSUVASTATIN 20 MG TABLET PO SCH (08:27)
[2018-11-24] MEDS: ISOSORBIDE MONONITRATE 60 MG TABLET PO SCH (08:27)
[2018-11-24] MEDS: PANTOPRAZOLE 40 MG TABLET PO SCH (08:27)
[2018-11-24] MEDS: VALSARTAN 160 MG TABLET PO SCH (08:27)
[2018-11-24] MEDS: carvediloL 25 MG TABLET PO SCH ×2 (08:28→16:26)
[2018-11-24] MEDS: RIVAROXABAN 2.5 MG TABLET PO SCH ×2 (08:28→21:06)
[2018-11-24] MEDS: LOSARTAN 50 MG TABLET PO SCH ×2 (08:28→21:08)
[2018-11-24] MEDS: FUROSEMIDE 40 MG TABLET PO SCH (08:28)
[2018-11-24] MEDS: POTASSIUM CHLORIDE 20 MEQ TABLET PO SCH (08:28)
[2018-11-24] MEDS: SODIUM CHLORIDE 0.9% 1,000 ML IV SCH (08:30)
[2018-11-25] MEDS: ASPIRIN EC 81 MG TABLET PO SCH (10:08)
[2018-11-25] MEDS: ISOSORBIDE MONONITRATE 60 MG TABLET PO SCH (10:09)
[2018-11-25] MEDS: ROSUVASTATIN 20 MG TABLET PO SCH (10:09)
[2018-11-25] MEDS: FUROSEMIDE 40 MG TABLET PO SCH (10:11)
[2018-11-25] MEDS: POTASSIUM CHLORIDE 20 MEQ TABLET PO SCH (10:11)
[2018-11-25] MEDS: carvediloL 25 MG TABLET PO SCH (10:12)
[2018-11-25] MEDS: LOSARTAN 50 MG TABLET PO SCH (10:13)
[2018-11-25] MEDS: VALSARTAN 160 MG TABLET PO SCH (10:14)
[2018-11-25] MEDS ORDERED: GLUCAGON 1 MG VIAL IM PRN (10:21)
[2018-11-25] MEDS ORDERED: DEXTROSE 10% 25 GM/250 ML BAG IV PRN (10:21)
[2018-11-25] MEDS: PANTOPRAZOLE 40 MG TABLET PO SCH (11:14)
[2018-11-25] MEDS ORDERED: INSULIN LISPRO 100 UNIT/ML SUBCUT SCH (11:30)
[2018-11-25 11:45] VITALS: BP 156/64
[2018-11-25] MEDS: RIVAROXABAN 2.5 MG TABLET PO SCH (11:52)
== END 2018-11-25 13:45 | disposition home or self-care (01) | DRG 439 ==
LOC: N.EDINP 02:38 → N.ED 02:38 → OBSVTOIN 09:07 → SUATTDRO 09:07 → N.EDINP 09:59 → N.3E 10:14 → SUATTDRO 11-24 10:00
PROVIDERS: ADMIT Internal Medicine; ATTEND Hospitalist

== ENCOUNTER 2019-02-17 04:18 | Observation (INO) ==
[2019-02-17 05:52] LABS: Albumin 2.7 G/DL (3.4-5.0); Bilirubin,Total 1.1 MG/DL (0.2-1.0); Calcium 8.3 MG/DL (8.5-10.1); Osmolality,Calculated 284.3 MOS/KG (273-304)
[2019-02-17 05:58] LABS: INR 1.2; PT Patient Result 12.5 SECS (9.6-12.2); Partial Thromboplastin Time 33.2 SECS (20.8-36.0)
[2019-02-17 05:59] LABS: Basophils % 0.2 % (0.0-0.8); Eosinophils # 0.2 10*3/uL (0.0-0.87); Eosinophils % 2.2 % (0.00-10.9); Hematocrit 37.8 VOL% (42.0-52.0); Hemoglobin 11.6 GM/DL (14.0-18.0); Immature Granulocytes % 0.4 %; Immature Granulocytes Absolute 0.03 #; Lymphocytes # 2.8 10*3/uL (1.4-4.0); Lymphocytes % 33.7 % (21.2-54.2); Mean Corpuscular HGB Conc 30.7 GM/DL (32-36); Mean Corpuscular Volume 96.4 FL (87-102); Mean Platelet Volume 10.6 FL (9.6-12.0); Monocytes % 7.4 % (1.7-12.7); Neutrophils % 56.1 % (38.7-73.9); Platelet Count 162 T/CUMM (130-400); Red Blood Count 3.92 MC/CUMM (3.8-5.5); Red Cell Distribution Width 14.5 % (9.3-17.3); White Blood Count 8.4 T/CUMM (4-12)
[2019-02-17] MEDS ORDERED: NITROGLYCERIN 2% OINT 1 INCH/GM PACK TOP STA (06:13)
[2019-02-17] MEDS ORDERED: ENOXAPARIN 120 MG/0.8 ML SYRINGE SUBCUT STA (06:16)
[2019-02-17] MEDS ORDERED: ASPIRIN CHEW 81 MG TABLET PO STA (06:16)
[2019-02-17] MEDS ORDERED: GLUCAGON 1 MG VIAL IM PRN (07:05)
[2019-02-17] MEDS ORDERED: MORPHINE 4 MG/1 ML VIAL IV PRN (07:05)
[2019-02-17] MEDS ORDERED: MAGNESIUM SULF RIDER 4 GM in PREMIX 1 EACH IV PRN (07:05)
[2019-02-17] MEDS ORDERED: DEXTROSE 50% 25 GM/50 ML VIAL IV PRN (07:05)
[2019-02-17] MEDS ORDERED: NITROGLYCERIN SL 0.4 MG TABLET SL PRN (07:05)
[2019-02-17] MEDS ORDERED: MAGNESIUM SULF RIDER 2 GM in PREMIX 1 EACH IV PRN (07:05)
[2019-02-17] MEDS ORDERED: ALUM/MAG/SIMETH/LIDO VISC 1:1 30 ML BOTTLE PO PRN (07:05)
[2019-02-17] MEDS ORDERED: FUROSEMIDE 40 MG/4 ML VIAL IV STA (07:11)
[2019-02-17] MEDS ORDERED: FUROSEMIDE 40 MG TABLET PO SCH (09:00)
[2019-02-17] MEDS: LOSARTAN 50 MG TABLET PO SCH ×2 (11:20→22:36)
[2019-02-17] MEDS: ROSUVASTATIN 20 MG TABLET PO SCH (11:20)
[2019-02-17] MEDS: ISOSORBIDE MONONITRATE 60 MG TABLET PO SCH (11:21)
[2019-02-17] MEDS: CYANOCOBALAMIN 500 MCG TABLET PO SCH (11:21)
[2019-02-17] MEDS: POTASSIUM CHLORIDE 20 MEQ TABLET PO SCH (11:22)
[2019-02-17] MEDS: carvediloL 25 MG TABLET PO SCH ×2 (11:22→16:08)
[2019-02-17] MEDS: PANTOPRAZOLE 40 MG TABLET PO SCH ×2 (11:22→22:22)
[2019-02-17] MEDS: ASPIRIN EC 81 MG TABLET PO SCH (11:23)
[2019-02-17] MEDS: INSULIN LISPRO 100 UNIT/ML SUBCUT SCH ×2 (11:23→22:25)
[2019-02-17] MEDS: RIVAROXABAN 2.5 MG TABLET PO SCH ×2 (11:42→22:37)
[2019-02-17] MEDS: INSULIN REGULAR 100 UNIT/ML SUBCUT SCH ×2 (12:05→18:16)
[2019-02-17] MEDS ORDERED: ALBUTEROL 2.5 MG/3 ML NEB RESP TX PRN (13:28)
[2019-02-17] MEDS ORDERED: guaiFENesin/CODEINE 5 ML LIQUID PO PRN (13:28)
[2019-02-17] MEDS ORDERED: hydrALAZINE 20 MG/1 ML VIAL IV PRN (13:35)
[2019-02-17] MEDS ORDERED: cefTRIAXone 1,000 MG in SYRINGE 1 EACH IV SCH (14:00)
[2019-02-17] MEDS ORDERED: AZITHROMYCIN INJ 500 MG in SODIUM CHLORIDE 0.9% 250 ML IV SCH (15:00)
[2019-02-17] MEDS: BENZONATATE 100 MG CAPSULE PO SCH ×2 (16:07→22:22)
[2019-02-17] MEDS ORDERED: INSULIN LISPRO 100 UNIT/ML SUBCUT SCH (19:00)
[2019-02-17] MEDS: ALBUTEROL/IPRATROPIUM 3 ML NEB RESP TX SCH (19:29)
[2019-02-17] MEDS ORDERED: INSULIN GLARGINE 100 UNIT/ML SUBCUT SCH (21:00)
[2019-02-17] MEDS: METHOCARBAMOL 500 MG TABLET PO SCH (22:22)
[2019-02-18] MEDS: INSULIN REGULAR 100 UNIT/ML SUBCUT SCH ×2 (00:24→05:52)
[2019-02-18] MEDS: ALBUTEROL/IPRATROPIUM 3 ML NEB RESP TX SCH ×2 (00:36→07:17)
[2019-02-18 04:44] LABS: Basophils % 0.3 % (0.0-0.8); Eosinophils # 0.2 10*3/uL (0.0-0.87); Eosinophils % 1.9 % (0.00-10.9); Hematocrit 35.2 VOL% (42.0-52.0); Immature Granulocytes % 0.3 %; Immature Granulocytes Absolute 0.03 #; Lymphocytes % 32.8 % (21.2-54.2); Mean Corpuscular HGB Conc 31.3 GM/DL (32-36); Mean Corpuscular Volume 96.2 FL (87-102); Mean Platelet Volume 10.1 FL (9.6-12.0); Monocytes % 7.2 % (1.7-12.7); Neutrophils % 57.5 % (38.7-73.9); Platelet Count 148 T/CUMM (130-400); Red Blood Count 3.66 MC/CUMM (3.8-5.5); Red Cell Distribution Width 14.6 % (9.3-17.3)
[2019-02-18 05:21] LABS: Albumin 2.5 G/DL (3.4-5.0); Bilirubin,Total 1.1 MG/DL (0.2-1.0); Calcium 7.9 MG/DL (8.5-10.1); Osmolality,Calculated 285.1 MOS/KG (273-304)
[2019-02-18 07:47] VITALS: BP 141/76
[2019-02-18] MEDS: ROSUVASTATIN 20 MG TABLET PO SCH (08:47)
[2019-02-18] MEDS: CYANOCOBALAMIN 500 MCG TABLET PO SCH (08:47)
[2019-02-18] MEDS: ASPIRIN EC 81 MG TABLET PO SCH (08:48)
[2019-02-18] MEDS: ISOSORBIDE MONONITRATE 60 MG TABLET PO SCH (08:48)
[2019-02-18] MEDS: LOSARTAN 50 MG TABLET PO SCH (08:48)
[2019-02-18] MEDS: POTASSIUM CHLORIDE 20 MEQ TABLET PO SCH (08:48)
[2019-02-18] MEDS: PANTOPRAZOLE 40 MG TABLET PO SCH (08:49)
[2019-02-18] MEDS: METHOCARBAMOL 500 MG TABLET PO SCH (08:49)
[2019-02-18] MEDS: INSULIN LISPRO 100 UNIT/ML SUBCUT SCH (08:49)
[2019-02-18] MEDS: BENZONATATE 100 MG CAPSULE PO SCH (08:49)
[2019-02-18] MEDS: carvediloL 25 MG TABLET PO SCH (08:50)
[2019-02-18] MEDS: RIVAROXABAN 2.5 MG TABLET PO SCH (08:51)
[2019-02-19] MEDS ORDERED: AZITHROMYCIN 250 MG TABLET PO SCH (09:00)
== END 2019-02-18 11:29 | disposition home or self-care (01) ==
LOC: N.ED 04:18 → N.EDINP 04:18 → N.2W 07:47
PROVIDERS: ADMIT Internal Medicine; ATTEND Internal Medicine